=== PATIENT | female | born 1930 | race Caucasian/White ===

== ENCOUNTER → 2017-05-02 | Outpatient (CLI) | payer MEDICARE ==
[~2017-05-02] MED LIST: DILT180C56 PO; LORA-392 PO; ONDA4TAB7 PO
[2017-05-02 17:56] LABS: AUTOMATED NEUTROPHIL # 4.3 TH/MM3 (1.8-7.7); BASOPHIL # 0.1 TH/MM3 (0-0.2); BASOPHIL % 1.1 % (0.0-2.0); EOSINOPHIL # 0.1 TH/MM3 (0-0.4); EOSINOPHIL % 2.5 % (0.0-4.0); HEMATOCRIT 43.8 % (35.0-46.0); HEMO FLAGS DIFF FINAL; LYMPH % 9.9 % (9.0-44.0); LYMPHOCYTE # 0.6 TH/MM3 (1.0-4.8); MEAN CORPUSCULAR HEMOGLOBIN 30.1 PG (27.0-34.0); MEAN CORPUSCULAR HGB CONC 32.4 % (32.0-36.0); MONO % 12.9 % (0.0-8.0); NEUT % 73.6 % (16.0-70.0); PLATELET COUNT 157 TH/MM3 (150-450); RED BLOOD COUNT 4.71 MIL/MM3 (4.00-5.30); RED CELL DISTRIBUTION WIDTH 13.9 % (11.6-17.2); WHITE BLOOD COUNT 5.8 TH/MM3 (4.0-11.0)
[2017-05-02 18:14] LABS: ALT (GPT) 31 U/L (10-53); ANION GAP 8 MEQ/L (5-15); AST (GOT) 29 U/L (15-37); BICARBONATE 31.5 MEQ/L (21.0-32.0); BLOOD UREA NITROGEN 20 MG/DL (7-18); CHLORIDE 101 MEQ/L (98-107); GLOMERULAR FILTRATION RATE 65 ML/MIN (>89); POTASSIUM 4.1 MEQ/L (3.5-5.1); SODIUM (NA) 140 MEQ/L (136-145)
[2017-05-02 18:24] LABS: ALKALINE PHOSPHATASE 87 U/L (45-117); TOTAL BILIRUBIN ADULT 0.8 MG/DL (0.2-1.0)
== END ==
LOC: PLAB 15:43
PROVIDERS: ATTEND Family Medicine
DX: F41.1 Generalized anxiety disorder (principal); R53.83 Other fatigue; R53.1 Weakness; K59.00 Constipation, unspecified
CPT/HCPCS: 36415; 80053; 84443; 85025

== ENCOUNTER → 2017-10-05 | Outpatient (CLI) | payer MEDICARE ==
[2017-10-05 13:55] LABS: AUTOMATED NEUTROPHIL # 3.6 TH/MM3 (1.8-7.7); BASOPHIL # 0.1 TH/MM3 (0-0.2); BASOPHIL % 1.4 % (0.0-2.0); EOSINOPHIL # 0.1 TH/MM3 (0-0.4); EOSINOPHIL % 2.4 % (0.0-4.0); HEMATOCRIT 46.3 % (35.0-46.0); HEMO FLAGS DIFF FINAL; LYMPH % 11.9 % (9.0-44.0); LYMPHOCYTE # 0.6 TH/MM3 (1.0-4.8); MEAN CELL VOLUME 93.3 FL (80.0-100.0); MEAN CORPUSCULAR HEMOGLOBIN 30.6 PG (27.0-34.0); MEAN CORPUSCULAR HGB CONC 32.8 % (32.0-36.0); MONO % 11.3 % (0.0-8.0); PLATELET COUNT 162 TH/MM3 (150-450); RED BLOOD COUNT 4.97 MIL/MM3 (4.00-5.30); RED CELL DISTRIBUTION WIDTH 14.3 % (11.6-17.2); WHITE BLOOD COUNT 4.9 TH/MM3 (4.0-11.0)
== END ==
LOC: PLAB 10:48
PROVIDERS: ATTEND Family Medicine
DX: D72.821 Monocytosis (symptomatic) (principal)
CPT/HCPCS: 36415; 85025

== ENCOUNTER 2018-01-03 17:30 | Observation (INO) | payer MEDICARE ==
[~2018-01-03] VITALS: Ht 162.6 cm; Wt 41.5 kg
[2018-01-03] VITALS (7 sets, daily range): BP systolic 156–192; BP diastolic 84–99; PULSE 66–83; RESP 14–18; TEMP 97.5–98; O2SAT 95–98
[2018-01-03] MEDS ORDERED: SODIUM CHLORIDE 0.9% FLUSH 10 ML FLUSH IVF PRN (17:45)
--- NOTE | 2018-01-03 17:53 | PD ---
HPI Chief Complaint: Neuro Symptoms/ Deficits Time Seen by Provider: 17:42 Travel History International Travel<30 days: No Contact w/Intl Traveler<30days: No Traveled to known affect area: No History of Present Illness HPI 87-year-old female patient presents to the ER today brought in because she states that around 4 PM she started feeling very lightheaded, felt like she was going to pass out, but did not pass out. She states that the symptoms lasted for several hours but is now subsiding. She has some discomfort on her left cheek but otherwise denies any chest pains, shortness of breath, or any other symptoms. She denies any focal neurological symptoms. She states that she just felt lightheaded and disoriented. Modifying Factors: None Associated Signs & Symptoms: Lightheadedness, disorientation, near syncope Risk Factors: Elderly PFSH Past Medical History Arthritis: Yes (LE'S) Asthma: Yes Autoimmune Disease: No Anxiety: Yes Depression: Yes Heart Rhythm Problems: No Cancer: No Cardiovascular Problems: No High Cholesterol: Yes (WILL NOT TAKE CHOLESTEROL MEDS) Chemotherapy: No Chest Pain: No Congestive Heart Failure: No COPD: No Diabetes: No Diminished Hearing: Yes (R EAR HEARING AID; FREQUENT FLUID IN EARS) Endocrine: No Gastrointestinal Disorders: Yes (CONSTIPATION) GERD: Yes Genitourinary: Yes Hiatal Hernia: No Immune Disorder: No Musculoskeletal: Yes (TEMPORAL ARTERITIS) Neurologic: No Psychiatric: No Reproductive: No Respiratory: Yes (ASTHMA) Pneumonia: Yes Radiation Therapy: No Sickle Cell Disease: No Sleep Apnea: No Thyroid Disease: No Ulcer: No ?: Not Menopausal: Yes Past Surgical History Abdominal Surgery: No AICD: No Arteriovenous Shunt: No Cardiac Surgery: No Ear Surgery: Yes (TUBES IN LEFT EAR) Endocrine Surgery: Yes (SINUS SURGERY) Eye Surgery: Yes (BILATERAL CATARACTS 2002; MACULAR HOLE LEFT EYE 2002) Genitourinary Surgery: No Gynecologic Surgery: No Insulin Pump: No Joint Replacement: No Oral Surgery: No Pacemaker: No Thoracic Surgery: No Other Surgery: Yes (LEFT ARM/WRIST) Social History Alcohol Use: No Tobacco Use: No Substance Use: No Allergies-Medications (Allergen,Severity, Reaction): Coded Allergies: clarithromycin (Unverified Allergy, Mild, 01/03/18) clindamycin (Unverified Allergy, Mild, 01/03/18) ofloxacin (Unverified Allergy, Mild, 01/03/18) paroxetine (Unverified Allergy, Mild, 01/03/18) penicillin G (Unverified Allergy, Mild, 01/03/18) sulfamethoxazole (Unverified Allergy, Mild, 01/03/18) trimethoprim (Unverified Allergy, Mild, 01/03/18) venlafaxine (Unverified Allergy, Mild, 01/03/18) acetaminophen (Unverified Adverse Reaction, Intermediate, THROAT GETS RED. , 01/03/18) aspirin (Unverified Adverse Reaction, Intermediate, UPSET STOMACH, 01/03/18) ibuprofen (Unverified Adverse Reaction, Mild, NAUSEA, 01/03/18) Reported Meds & Prescriptions Reported Meds & Active Scripts Active No Active Prescriptions or Reported Medications Review of Systems Except as stated in HPI: all other systems reviewed are Neg Physical Exam Narrative GENERAL: [Well-developed thin elderly white female patient currently in mild distress. Awake and oriented 3. SKIN: Focused skin assessment warm/dry. HEAD: Atraumatic. Normocephalic. EYES: Pupils equal and round. No scleral icterus. No injection or drainage. ENT: No nasal bleeding or discharge. Mucous membranes pink and moist. NECK: Trachea midline. No JVD. CARDIOVASCULAR: Regular rate and rhythm. No murmur appreciated. RESPIRATORY: No accessory muscle use. Clear to auscultation. Breath sounds equal bilaterally. GASTROINTESTINAL: Abdomen soft, non-tender, nondistended. Hepatic and splenic margins not palpable. MUSCULOSKELETAL: No obvious deformities. No clubbing. No cyanosis. No edema. NEUROLOGICAL: Awake and alert. No obvious cranial nerve deficits. Motor grossly within normal limits. Normal speech. No pronator drift. PSYCHIATRIC: Appropriate mood and affect; insight and judgment normal. Data Data Last Documented VS Vital Signs Date Time Temp Pulse Resp B/P (MAP) Pulse Ox O2 Delivery O2 Flow Rate FiO2 01/03/18 18:45 83 14 169/99 (122) 98 Room Air 01/03/18 17:45 98.0 Orders Orders Electrocardiogram (01/03/18 17:42) Complete Blood Count With Diff (01/03/18 17:42) Comprehensive Metabolic Panel (01/03/18 17:42) Magnesium (Mg) (01/03/18 17:42) Ckmb (Isoenzyme) Profile (01/03/18 17:42) Troponin I (01/03/18 17:42) Act Partial Throm Time (Ptt) (01/03/18 17:42) Prothrombin Time / Inr (Pt) (01/03/18 17:42) Urinalysis - C+S If Indicated (01/03/18 17:42) Chest, Single Ap (01/03/18 17:42) Ct Brain W/O Iv Contrast(Rout) (01/03/18 17:42) Ecg Monitoring (01/03/18 17:42) Iv Access Insert/Monitor (01/03/18 17:42) Oximetry (01/03/18 17:42) Sodium Chloride 0.9% Flush (Ns Flush) (01/03/18 17:45) Blood Culture (01/03/18 17:42) Lactic Acid Sepsis Protocol (01/03/18 17:42) Admit Order (Ed Use Only) (01/03/18 19:44) Labs Laboratory Tests Test 01/03/18 17:50 01/03/18 18:30 01/03/18 19:10 White Blood Count 4.9 TH/MM3 Red Blood Count 4.64 MIL/MM3 Hemoglobin 14.1 GM/DL Hematocrit 42.6 % Mean Corpuscular Volume 91.7 FL Mean Corpuscular Hemoglobin 30.3 PG Mean Corpuscular Hemoglobin Concent 33.0 % Red Cell Distribution Width 13.3 % Platelet Count 163 TH/MM3 Mean Platelet Volume 8.7 FL Neutrophils (%) (Auto) 76.6 % Lymphocytes (%) (Auto) 10.6 % Monocytes (%) (Auto) 9.4 % Eosinophils (%) (Auto) 2.4 % Basophils (%) (Auto) 1.0 % Neutrophils # (Auto) 3.8 TH/MM3 Lymphocytes # (Auto) 0.5 TH/MM3 Monocytes # (Auto) 0.5 TH/MM3 Eosinophils # (Auto) 0.1 TH/MM3 Basophils # (Auto) 0.0 TH/MM3 CBC Comment DIFF FINAL Differential Comment Prothrombin Time 11.4 SEC Prothromb Time International Ratio 1.1 RATIO Activated Partial Thromboplast Time 25.9 SEC Blood Urea Nitrogen 22 MG/DL Creatinine 0.95 MG/DL Random Glucose 143 MG/DL Total Protein 7.3 GM/DL Albumin 3.6 GM/DL Calcium Level 8.6 MG/DL Magnesium Level 2.5 MG/DL Alkaline Phosphatase 97 U/L Aspartate Amino Transf (AST/SGOT) 33 U/L Alanine Aminotransferase (ALT/SGPT) 36 U/L Total Bilirubin 0.5 MG/DL Sodium Level 134 MEQ/L Potassium Level 4.0 MEQ/L Chloride Level 99 MEQ/L Carbon Dioxide Level 29.8 MEQ/L Anion Gap 5 MEQ/L Estimat Glomerular Filtration Rate 56 ML/MIN Total Creatine Kinase 99 U/L Troponin I LESS THAN 0.02 NG/ML Lactic Acid Level 1.2 mmol/L Urine Color YELLOW Urine Turbidity CLEAR Urine pH 6.0 Urine Specific [place] 1.014 Urine Protein NEG mg/dL Urine Glucose (UA) NEG mg/dL Urine Ketones NEG mg/dL Urine Occult Blood NEG Urine Nitrite NEG Urine Bilirubin NEG Urine Leukocyte Esterase TRACE Urine RBC 0-3 /hpf Urine WBC 0-2 /hpf Urine Squamous Epithelial Cells 0-5 /hpf Urine Mucus MOD /lpf Microscopic Urinalysis Comment CULT NOT INDICATED MDM Medical Decision Making Medical Screen Exam Complete: Yes Emergency Medical Condition: Yes Medical Record Reviewed: Yes Interpretation(s) EKG shows normal sinus rhythm at a rate of 78 bpm with occasional APC. Laboratory Tests Test 01/03/18 17:50 01/03/18 18:30 Neutrophils (%) (Auto) 76.6 % (16.0-70.0) Monocytes (%) (Auto) 9.4 % (0.0-8.0) Lymphocytes # (Auto) 0.5 TH/MM3 (1.0-4.8) Blood Urea Nitrogen 22 MG/DL (7-18) Random Glucose 143 MG/DL (74-106) Sodium Level 134 MEQ/L (136-145) Estimat Glomerular Filtration Rate 56 ML/MIN (>89) Troponin I LESS THAN 0.02 NG/ML Last [address] 01/03/18 0282 Signed Impressions: Service Date/Time: Wednesday, January 03, 2018 18:06 - CONCLUSION: Normal examination for a patient of this age. Chronic changes involving the sinuses. Tomy Somers MD Differential Diagnosis Lightheadedness, disorientation episode: Dehydration versus metabolic issues versus dysrhythmias versus CVA versus sepsis versus ICH Narrative Course Symptoms have subsided in the ER. CAT scan of the brain was negative for any signs of acute intracranial processes. EKG did not show acute dysrhythmia although she did have a PAC. She did not have any significant ST changes. vital signs are stable in the ER. She has no focal neurological findings. At this point, my plan would be to admit her for observation for further evaluation of episode. Case was discussed with PA for Dr. Siegel. Diagnosis Primary Impression: Near syncope Admitting Information Admitting Physician Requests: Admit Scripts No Active Prescriptions or Reported Meds Mariel Mullins MD Jan 03, 2018 17:53
--- NOTE | 2018-01-03 18:17 | RADRPT ---
EXAM DATE/TIME: 01/03/2018 18:06 [facility] COMPARISON: No previous studies available for comparison. INDICATIONS : Episode of confusion. RADIATION DOSE: 57.68 CTDIvol (mGy) MEDICAL HISTORY : Hypercholesterolemia. SURGICAL HISTORY : None. ENCOUNTER: Initial ACUITY: 1 day PAIN SCALE: 0/10 LOCATION: cranial TECHNIQUE: Multiple contiguous axial images were obtained of the head. Using automated exposure control and adj ustment of the mA and/or kV according to patient size, radiation dose was kept as low as reasonably a chievable to obtain optimal diagnostic quality images. DICOM format image data is available electro nically for review and comparison. FINDINGS: CEREBRUM: The ventricles are normal for age. No evidence of midline shift, mass lesion, hemorrhage or acute in farction. No extra-axial fluid collections are seen. POSTERIOR FOSSA: The cerebellum and brainstem are intact. The 4th ventricle is midline. The cerebellopontine angle i s unremarkable. EXTRACRANIAL: The visualized portion of the orbits is intact. There is evidence of nasal sinus surgery. There is a polyp in the left maxillary sinus. There is some chronic changes in the ethmoid sinuses. SKULL: The calvaria is intact. No evidence of skull fracture. CONCLUSION: Normal examination for a patient of this age. Chronic changes involving the sinuses. Tomy Somers MD on January 03, 2018 at 18:14 Board Certified Radiologist. This report was verified electronically.
[2018-01-03 18:21] LABS: AUTOMATED NEUTROPHIL # 3.8 TH/MM3 (1.8-7.7); EOSINOPHIL # 0.1 TH/MM3 (0-0.4); EOSINOPHIL % 2.4 % (0.0-4.0); HEMATOCRIT 42.6 % (35.0-46.0); HEMOGLOBIN 14.1 GM/DL (11.6-15.3); LYMPH % 10.6 % (9.0-44.0); LYMPHOCYTE # 0.5 TH/MM3 (1.0-4.8); MEAN CELL VOLUME 91.7 FL (80.0-100.0); MEAN CORPUSCULAR HEMOGLOBIN 30.3 PG (27.0-34.0); MEAN PLATELET VOLUME 8.7 FL (7.0-11.0); MONO % 9.4 % (0.0-8.0); MONOCYTE # 0.5 TH/MM3 (0-0.9); NEUT % 76.6 % (16.0-70.0); PLATELET COUNT 163 TH/MM3 (150-450); RED BLOOD COUNT 4.64 MIL/MM3 (4.00-5.30); RED CELL DISTRIBUTION WIDTH 13.3 % (11.6-17.2); WHITE BLOOD COUNT 4.9 TH/MM3 (4.0-11.0)
[2018-01-03 18:32] LABS: CHLORIDE 99 MEQ/L (98-107); SODIUM (NA) 134 MEQ/L (136-145)
[2018-01-03 18:35] LABS: CALCIUM 8.6 MG/DL (8.5-10.1)
[2018-01-03 18:36] LABS: ALBUMIN 3.6 GM/DL (3.4-5.0); BICARBONATE 29.8 MEQ/L (21.0-32.0); BLOOD UREA NITROGEN 22 MG/DL (7-18); GLUCOSE,RANDOM 143 MG/DL (74-106); MAGNESIUM 2.5 MG/DL (1.5-2.5)
[2018-01-03 18:37] LABS: INTERNATIONAL NORMALIZED RATIO 1.1 RATIO; PROTHROMBIN TIME - PATIENT 11.4 SEC (9.8-11.6)
[2018-01-03 18:39] LABS: ALT (GPT) 36 U/L (10-53); AST (GOT) 33 U/L (15-37); CREATININE 0.95 MG/DL (0.50-1.00); GLOMERULAR FILTRATION RATE 56 ML/MIN (>89)
--- NOTE | 2018-01-03 18:40 | RADRPT ---
EXAM DATE/TIME: 01/03/2018 18:16 [facility] COMPARISON: No previous studies available for comparison. INDICATIONS : Weakness and confusion. MEDICAL HISTORY : Hypercholesterolemia. SURGICAL HISTORY : None. ENCOUNTER: Initial ACUITY: 1 day PAIN SCORE: 0/10 LOCATION: Bilateral chest FINDINGS: A single view of the chest demonstrates the lungs to be symmetrically aerated without evidence of mas s, infiltrate or effusion. There is hyperaeration bilaterally. The cardiomediastinal contours are un remarkable. Osseous structures are intact. CONCLUSION: No acute disease. Tomy Somers MD on January 03, 2018 at 18:37 Board Certified Radiologist. This report was verified electronically.
[2018-01-03 18:41] LABS: TOTAL BILIRUBIN ADULT 0.5 MG/DL (0.2-1.0); TOTAL PROTEIN 7.3 GM/DL (6.4-8.2)
[2018-01-03 18:42] LABS: ALKALINE PHOSPHATASE 97 U/L (45-117)
[2018-01-03 18:44] LABS: TROPONIN I LESS THAN 0.02 NG/ML (0.02-0.05)
[2018-01-03 19:23] LABS: BILIRUBIN, URINE NEG (NEG); BLOOD, URINE NEG (NEG); GLUCOSE,URINE NEG (NEG); KETONE, URINE NEG (NEG); NITRITE,URINE NEG (NEG); URINE LEUKOCYTE ESTERASE TRACE (NEG)
[2018-01-03 19:30] LABS: URINE COLOR YELLOW (YELLW/STRAW)
[2018-01-03 19:31] LABS: MUCUS URINE MOD /lpf (OCC); RBC, URINE 0-3 /hpf (0-3); SQUAMOUS EPITHELIAL CELL URINE 0-5 /hpf (0-5); WBC, URINE 0-2 /hpf (0-5)
[2018-01-03] MEDS ORDERED: GLUCAGON 1 MG/ML VIAL OTHER PRN (19:45)
[2018-01-03] MEDS ORDERED: SODIUM CHLORIDE 0.9% FLUSH 10 ML FLUSH IV FLUSH PRN (19:45)
[2018-01-03] MEDS ORDERED: DEXTROSE 50% IN WATER 50 ML VIAL(D50) IV PUSH PRN (19:45)
[2018-01-03] MEDS ORDERED: RESP: ALBUTEROL 2.5 MG/IPRATROPIUM 0.5 MG NEB (PRN) NEB (20:00)
[2018-01-03] MEDS: INSULIN ASPART SUPPLEMENTAL SCALE SQ SCH (22:00)
[2018-01-03] MEDS ORDERED: NAPROXEN 250 MG TAB PO ONE (22:45)
[2018-01-03] MEDS: SODIUM CHLORIDE 0.9% FLUSH 10 ML FLUSH IV FLUSH SCH (23:12)
[2018-01-03] MEDS: HEPARIN SODIUM - SQ 10,000 UNITS/ML VIAL SQ SCH (23:12)
[2018-01-03 23:13] LABS: TROPONIN I LESS THAN 0.02 NG/ML (0.02-0.05)
[2018-01-04] VITALS (8 sets, daily range): BP systolic 108–136; BP diastolic 64–78; PULSE 64–99; RESP 16–18; TEMP 97.2–97.8; O2SAT 91–99
[2018-01-04] MEDS: HEPARIN SODIUM - SQ 10,000 UNITS/ML VIAL SQ SCH ×2 (05:00→13:55)
[2018-01-04 06:46] LABS: AUTOMATED NEUTROPHIL # 3.3 TH/MM3 (1.8-7.7); BASOPHIL # 0.1 TH/MM3 (0-0.2); BASOPHIL % 1.1 % (0.0-2.0); EOSINOPHIL # 0.1 TH/MM3 (0-0.4); EOSINOPHIL % 3.1 % (0.0-4.0); HEMATOCRIT 40.8 % (35.0-46.0); HEMOGLOBIN 13.7 GM/DL (11.6-15.3); LYMPHOCYTE # 0.6 TH/MM3 (1.0-4.8); MEAN CELL VOLUME 91.2 FL (80.0-100.0); MEAN CORPUSCULAR HEMOGLOBIN 30.7 PG (27.0-34.0); MEAN CORPUSCULAR HGB CONC 33.7 % (32.0-36.0); MEAN PLATELET VOLUME 8.6 FL (7.0-11.0); MONO % 10.8 % (0.0-8.0); MONOCYTE # 0.5 TH/MM3 (0-0.9); PLATELET COUNT 147 TH/MM3 (150-450); RED BLOOD COUNT 4.47 MIL/MM3 (4.00-5.30); RED CELL DISTRIBUTION WIDTH 13.3 % (11.6-17.2); WHITE BLOOD COUNT 4.6 TH/MM3 (4.0-11.0)
[2018-01-04 07:10] LABS: CHLORIDE 99 MEQ/L (98-107); SODIUM (NA) 134 MEQ/L (136-145)
[2018-01-04 07:13] LABS: BICARBONATE 28.7 MEQ/L (21.0-32.0); BLOOD UREA NITROGEN 15 MG/DL (7-18)
[2018-01-04 07:15] LABS: CALCIUM 8.2 MG/DL (8.5-10.1)
[2018-01-04 07:16] LABS: GLUCOSE,RANDOM 64 MG/DL (74-106)
[2018-01-04 07:20] LABS: CREATININE 0.64 MG/DL (0.50-1.00); GLOMERULAR FILTRATION RATE 88 ML/MIN (>89)
[2018-01-04 07:21] LABS: TROPONIN I LESS THAN 0.02 NG/ML (0.02-0.05)
[2018-01-04] MEDS: INSULIN ASPART SUPPLEMENTAL SCALE SQ SCH ×3 (08:00→17:00)
[2018-01-04] MEDS ORDERED: ALPRAZolam 0.25 MG TAB PO ONE (08:30)
[2018-01-04] MEDS: SODIUM CHLORIDE 0.9% FLUSH 10 ML FLUSH IV FLUSH SCH (09:00)
[2018-01-04 09:56] LABS: CHOLESTEROL/ HDL RATIO 2.1 RATIO; HDL CHOLESTEROL 65.1 MG/DL (40.0-60.0)
--- NOTE | 2018-01-04 10:03 | RADRPT ---
EXAM DATE/TIME: 01/04/2018 09:05 [facility] COMPARISON: No previous studies available for comparison. INDICATIONS : Syncope. MEDICAL HISTORY : Hypercholesterolemia. Gastroesophageal reflux disease. Asthma. Dyspnea. Arthritis. SURGICAL HISTORY : Sinus surgery. Left arm surgery. ENCOUNTER: Initial ACUITY: 1 day PAIN SCORE: 0/10 LOCATION: Bilateral neck PEAK SYSTOLIC VELOCITIES (cm/sec): ICA/CCA RATIO: Right: 1.0 Left: 1.4 ICA: Right: 119 Left: 81 CCA: Right: 113 Left: 60 ECA: Right: 86 Left: 79 VERTEBRAL: Right: 61 antegrade Left: 63 antegrade Elevated flow velocities and ICA/CCA ratios have been found to correlate with increased degrees of vessel stenosis, calculated as percentage of diameter relative to a normal segment of distal ICA/CCA FINDINGS: RIGHT CAROTID: Eccentric calcific plaquing. No significant stenosis is visualized. The waveforms are within normal limits. LEFT CAROTID: Eccentric calcific plaquing. No significant stenosis is visualized. The waveforms are within normal limits. VERTEBRAL ARTERIES: Antegrade flow is seen in both vertebral arteries. MISCELLANEOUS: None. CONCLUSION: No evidence of flow-limiting carotid stenosis. Candido Verdugo MD on January 04, 2018 at 10:00 Board Certified Radiologist. This report was verified electronically.
--- NOTE | 2018-01-04 10:07 | HHI.FF ---
Face to Face Verification Diagnosis: (1) Gait instability (2) Near syncope Physical Therapy Order: Evaluate and Treat, Improve ambulation Occupational Therapy Order: Evaluate and Treat, Improve ADL, Gross motor coordination Home Health Nursing Order: Medical education Signs/symptoms of disease process I have seen patient Candi Beltran on 01/04/18. My clinical findings support the need for the requested home health care services because: Ltd mobility - disease progression I certify that my clinical findings support that this patient is homebound because: Impaired cognitive ability/safety Unsteady gait/balance Gladys Zamudio MD Jan 04, 2018 10:07
[2018-01-04] MEDS ORDERED: LORazepam 2 MG/ML VIAL IV PUSH ONE (10:30)
--- NOTE | 2018-01-04 10:52 | MB ---
cc: TIKA MAHER DATE OF CONSULTATION 01/04/2018 REASON FOR CONSULTATION This is an 87-year-old woman with a history really she has been very healthy, but for many years, she has had dizziness if she turns her head to the left in bed. For the last several days, she had some lightheadedness, felt generally weak all over when she stood up not when she was lying. Does not remember if it occurred sitting. No asymmetrical weakness or numbness. She is very hard of hearing. REVIEW OF SYSTEMS She denies any hypertension, diabetes, hypercholesterolemia, [place], CABG, stent angioplasty, A fib, Coumadin. She does not take an aspirin a day. No history of renal, hepatic or pulmonary disease, thyroid disease, lupus, ulcer, cancer, seizure, or stroke. SOCIAL HISTORY Not a smoker or a drinker, lives alone. FAMILY HISTORY Positive for cancer, negative for seizure or stroke. PAST MEDICAL HISTORY 1. Tube in the left ear. She does not have a local ear, nose and throat doctor at this time. 2. She had been seen by neurology here before. 3. By the chart, temporal arteritis. She had temperature temporal arteritis about 8 years ago, but she has had no recent tenderness in the mandaeism which she did have back 8 years ago. She has had some sinus pain lower eyes with no headaches recently and no mandaeism tenderness recently. 4. Asthma MEDICATIONS AT HOME She does not take an aspirin. ALLERGIES SHE IS ALLERGIC TO CLARITHROMYCIN, CLINDAMYCIN, OFLOXACIN, PARXOETINE, PENICILLIN, SULFA, BACTRIM, VENLAFAXINE, TYLENOL, ASPIRIN, IBUPROFEN. PHYSICAL EXAM VITAL SIGNS: Afebrile, 72-99,l 18, 116/71. NECK: There were no carotid or vertebral bruits. HEART: Regular rhythm. I did not detect a murmur. EAR: The right year has a lot of cerumen in it. The left ear I can see a tube not so much cerumen. She is very hard of hearing and uses a device to hear. NEUROLOGIC: Pupils are equal, visual stiles are full. Extraocular movements intact without nystagmus. Hallpike maneuvers has had a little bit of dizziness with the head to the left and I did the Hallpike maneuver times one starting on the left. Face is symmetrical with normal sensation. Tongue was midline. Temples were nontender bilaterally. There is no nodularity to the temporal arteries. There is no drift. She had normal strength in her upper and lower extremities bilaterally. DTRs trace throughout. Toes downgoing bilaterally. Pinprick is intact throughout. She is not ataxic on [id number] or [id number]. Speech is fluent. She is not aphasic. LABORATORY DATA CBC is normal. She had some high relative hypoxia on ABG back in 2013. Basic metabolic profile showed a sodium of 134, otherwise normal. GFR is normal. Calcium, lactic acid, bilirubin and LFTs, CPK, troponin, albumin all normal. LDL cholesterol is normal. UA is negative. Coags normal. In 2013, she evidently had some fluid out of her pleura. Chest x-ray Negative. She had a carotid ultrasound results are pending. She had a CT scan of her brain that was read as normal. Review of those films, they do appear to be normal. IMPRESSION I think her main complaint was lightheadedness. We will check some standing blood pressures on her. I do not see much wrong with her, although she has a history with sounds like benign positional vertigo and that could be related to some dizziness, but otherwise I think she could use of the wax removed from her right ear. It might be helpful with her hearing. I will see what the MRI of the brain shows, but I think probable it will be negative and will have PT ambulate her and we could see her back in the office for a benign positional vertigo in the future. We will check a sed rate with a history of temporal arteritis, although I note her sed rates were never extremely high up around 47 back in 2004. The last sed rate in 2005 was 2. Check a B12 level on her and her thyroid too and get some standing blood pressures. MD [place] Alexander/MICHAEL /9:58 AM /10:23 AM
[2018-01-04 12:49] LABS: C-REACTIVE PROTEIN LESS THAN 0.29 MG/DL (0.00-0.30)
--- NOTE | 2018-01-04 12:52 | RADRPT ---
EXAM DATE/TIME: 01/04/2018 11:16 [facility] COMPARISON: No previous studies available for comparison. INDICATIONS : TIA. MEDICAL HISTORY : Hypercholesterolemia, GERD SURGICAL HISTORY : Sinus Surgery ENCOUNTER: Subsequent ACUITY: 2 day PAIN SCORE: 0/10 LOCATION: Brain TECHNIQUE: Multiplanar, multisequence MRI of the brain was performed without contrast. FINDINGS: Moderate periventricular white matter changes are evident. There is no focal restricted diffusion. Ventricular size is appropriate. There are no extra-axial fluid collection appreciated. There is no parenchymal hemorrhage. The posterior fossa the vertebral arteries are prominent with mild dolichoectasia of the vertebral ar teries. Minimal white matter ischemic changes are seen in the brainstem CONCLUSION: Negative for acute ischemic event Dolichoectasia vertebral arteries Moderate periventricular white matter changes. oJse Najera MD FACR on January 04, 2018 at 12:43 Board Certified Radiologist. This report was verified electronically.
--- NOTE | 2018-01-04 12:55 | EKG ---
Date Performed: 01/03/2018 Time Performed: 17:57:56 PTAGE: 87 years EKG: ATRIAL FIBRILLATION MARKED LEFT AXIS DEVIATION LOW QRS VOLTAGE IN EXTREMITY LEADS INCOMPLET E RIGHT BUNDLE BRANCH BLOCK ANTEROSEPTAL MYOCARDIAL INFARCTION ABNORMAL ECG PREVIOUS TRACING : 01/03/2018 17.54 DOCTOR: Natanael Kraus Interpretating Date/Time 01/04/2018 12:49:08
--- NOTE | 2018-01-04 13:15 | HHI.HP ---
[facility]ician Adry Kelly MD Admission Diagnosis TIA/nearsyncope Diagnoses: Chief Complaint: Lightheaded Travel History International Travel<30 Days: No Contact w/Intl Traveler <30 Da: No Traveled to Known Affected Are: No History of Present Illness This patient is seen in follow up for dizziness for one day. She has worsening symptoms when she turns her head to the left. She has had no fevers or chills. She not denies any trouble speaking or weakness in the extremities. Patient has no new medications. She does have chronic ear issues including a tube in the left ear. On my exam as well as neurologist patient does have cerumen doses possible impaction on the right ear. She uses an external hearing device. She is recommended for observation due to acute neurological complaints and for dizziness.MRI is negative for acute changes Past Family Social History Past Medical History Heart of hearing Left ear tube Past Surgical History none Reported Medications None Allergies: Coded Allergies: clarithromycin (Unverified Allergy, Mild, 01/03/18) clindamycin (Unverified Allergy, Mild, 01/03/18) ofloxacin (Unverified Allergy, Mild, 01/03/18) paroxetine (Unverified Allergy, Mild, 01/03/18) penicillin G (Unverified Allergy, Mild, 01/03/18) sulfamethoxazole (Unverified Allergy, Mild, 01/03/18) trimethoprim (Unverified Allergy, Mild, 01/03/18) venlafaxine (Unverified Allergy, Mild, 01/03/18) acetaminophen (Unverified Adverse Reaction, Intermediate, THROAT GETS RED. , 01/03/18) aspirin (Unverified Adverse Reaction, Intermediate, UPSET STOMACH, 01/03/18) ibuprofen (Unverified Adverse Reaction, Mild, NAUSEA, 01/03/18) Family History Unknown Social History lives with Physical Exam Vital Signs Vital Signs Date Time Temp Pulse Resp B/P (MAP) Pulse Ox O2 Delivery O2 Flow Rate FiO2 01/04/18 08:00 97.7 99 18 116/71 (86) 96 01/04/18 07:01 78 01/04/18 04:00 97.4 72 18 136/72 (93) 94 01/04/18 00:00 97.8 64 18 128/64 (85) 91 01/03/18 21:00 72 01/03/18 20:50 97.5 66 18 166/96 (119) 95 01/03/18 20:35 74 18 156/87 (110) 96 01/03/18 19:49 20 01/03/18 19:25 71 18 169/89 (115) 97 01/03/18 18:45 83 14 169/99 (122) 98 Room Air 01/03/18 17:50 98 Room Air 01/03/18 17:45 98.0 83 18 192/84 (120) 98 Physical Exam GENERAL: This is a frail elderly female, in no apparent distress. Cachectic SKIN: No rashes, ecchymoses or lesions. Cool and dry. HEAD: Atraumatic. Normocephalic. No temporal or scalp tenderness. EYES: Pupils equal round and reactive. Extraocular motions intact. No scleral icterus. No injection or drainage. ENT: right ear ceruminosis, Nose without bleeding, purulent drainage or septal hematoma. Throat without erythema, tonsillar hypertrophy or exudate. Uvula midline. Airway patent. NECK: Trachea midline. No JVD or lymphadenopathy. Supple, nontender, no meningeal signs. CARDIOVASCULAR: Regular rate and rhythm without murmurs, gallops, or rubs. RESPIRATORY: Clear to auscultation. Breath sounds equal bilaterally. No wheezes , rales, or rhonchi. GASTROINTESTINAL: Abdomen soft, non-tender, nondistended. No hepato-splenomegaly , or palpable masses. No guarding. MUSCULOSKELETAL: Extremities without clubbing, cyanosis, or edema. No joint tenderness, effusion, or edema noted. No calf tenderness. Negative Homans sign bilaterally. NEUROLOGICAL: Awake and alert. profoundly hard of hearing. Motor and sensory grossly within normal limits. Five out of 5 muscle strength in all muscle groups. Normal speech. Laboratory Laboratory Tests Test 01/03/18 17:50 01/03/18 18:30 01/03/18 19:10 01/03/18 22:40 White Blood Count 4.9 Red Blood Count 4.64 Hemoglobin 14.1 Hematocrit 42.6 Mean Corpuscular Volume 91.7 Mean Corpuscular Hemoglobin 30.3 Mean Corpuscular Hemoglobin Concent 33.0 Red Cell Distribution Width 13.3 Platelet Count 163 Mean Platelet Volume 8.7 Neutrophils (%) (Auto) 76.6 Lymphocytes (%) (Auto) 10.6 Monocytes (%) (Auto) 9.4 Eosinophils (%) (Auto) 2.4 Basophils (%) (Auto) 1.0 Neutrophils # (Auto) 3.8 Lymphocytes # (Auto) 0.5 Monocytes # (Auto) 0.5 Eosinophils # (Auto) 0.1 Basophils # (Auto) 0.0 CBC Comment DIFF FINAL Differential Comment Prothrombin Time 11.4 Prothromb Time International Ratio 1.1 Activated Partial Thromboplast Time 25.9 Blood Urea Nitrogen 22 Creatinine 0.95 Random Glucose 143 Total Protein 7.3 Albumin 3.6 Calcium Level 8.6 Magnesium Level 2.5 Alkaline Phosphatase 97 Aspartate Amino Transf (AST/SGOT) 33 Alanine Aminotransferase (ALT/SGPT) 36 Total Bilirubin 0.5 Sodium Level 134 Potassium Level 4.0 Chloride Level 99 Carbon Dioxide Level 29.8 Anion Gap 5 Estimat Glomerular Filtration Rate 56 Total Creatine Kinase 99 81 Troponin I LESS THAN 0.02 LESS THAN 0.02 Lactic Acid Level 1.2 Urine Color YELLOW Urine Turbidity CLEAR Urine pH 6.0 Urine Specific [place] 1.014 Urine Protein NEG Urine Glucose (UA) NEG Urine Ketones NEG Urine Occult Blood NEG Urine Nitrite NEG Urine Bilirubin NEG Urine Leukocyte Esterase TRACE Urine RBC 0-3 Urine WBC 0-2 Urine Squamous Epithelial Cells 0-5 Urine Mucus MOD Microscopic Urinalysis Comment CULT NOT INDICATED Test 01/04/18 04:55 White Blood Count 4.6 Red Blood Count 4.47 Hemoglobin 13.7 Hematocrit 40.8 Mean Corpuscular Volume 91.2 Mean Corpuscular Hemoglobin 30.7 Mean Corpuscular Hemoglobin Concent 33.7 Red Cell Distribution Width 13.3 Platelet Count 147 Mean Platelet Volume 8.6 Neutrophils (%) (Auto) 72.0 Lymphocytes (%) (Auto) 13.0 Monocytes (%) (Auto) 10.8 Eosinophils (%) (Auto) 3.1 Basophils (%) (Auto) 1.1 Neutrophils # (Auto) 3.3 Lymphocytes # (Auto) 0.6 Monocytes # (Auto) 0.5 Eosinophils # (Auto) 0.1 Basophils # (Auto) 0.1 CBC Comment DIFF FINAL Differential Comment Erythrocyte Sedimentation Rate 9 Blood Urea Nitrogen 15 Creatinine 0.64 Random Glucose 64 Calcium Level 8.2 Sodium Level 134 Potassium Level 3.9 Chloride Level 99 Carbon Dioxide Level 28.7 Anion Gap 6 Estimat Glomerular Filtration Rate 88 Total Creatine Kinase 102 Troponin I LESS THAN 0.02 C-Reactive Protein LESS THAN 0.29 Triglycerides Level 51 Cholesterol Level 137 LDL Cholesterol 62 HDL Cholesterol 65.1 Cholesterol/HDL Ratio 2.10 Thyroid Stimulating Hormone 3rd Gen 3.110 Date/Time Source Procedure Growth Status 01/03/18 18:30 Blood Peripheral Aerobic Blood Culture - Preliminary NO GROWTH IN 1 DAY Resulted 01/03/18 18:30 Blood Peripheral Anaerobic Blood Culture - Preliminary NO GROWTH IN 1 DAY Resulted Result Diagram: 01/04/185 01/04/18 0455 Imaging Last Impressions Carotid Artery Ultrasound 01/04/18 0000 Signed Impressions: Service Date/Time: Thursday, January 04, 2018 09:05 - CONCLUSION: No evidence of flow-limiting carotid stenosis. Candido Verdugo MD Head CT 01/03/181741 Signed Impressions: Service Date/Time: Wednesday, January 03, 2018 18:06 - CONCLUSION: Normal examination for a patient of this age. Chronic changes involving the sinuses. Tomy Somers MD Chest X-Ray [id number]/03/181741 Signed Impressions: Service Date/Time: Wednesday, January 03, 2018 18:16 - CONCLUSION: No acute disease. Tomy Somers MD Capana cristinai VTE Risk Assessment Caprini VTE Risk Assessment: Mod/High Risk (score >= 2) Caprini Risk Assessment Model Point Value = 1 Point Value = 2 Point Value = 3 Point Value = 5 Age 41-60 Minor surgery BMI > 25 kg/m2 Swollen legs Varicose veins or History of unexplained or recurrent spontaneous Oral contraceptives or hormone replacement Sepsis (< 1 month) Serious lung disease, including pneumonia (< 1 month) Abnormal pulmonary function Acute myocardial infarction Congestive heart failure (< 1 month) History of inflammatory bowel disease Medical patient at bed rest Age 61-74 Arthroscopic surgery Major open surgery (> 45 min) Laparoscopic surgery (> 45 min) Malignancy Confined to bed (> 72 hours) Immobilizing plaster cast Central venous access Age >= 75 History of VTE Family history of VTE Factor V Leiden Prothrombin [id number] Lupus anticoagulant Anticardiolipin antibodies Elevated serum homocysteine Heparin-induced thrombocytopenia Other congenital or acquired thrombophilia Stroke (< 1 month) Elective arthroplasty Hip, pelvis, or leg fracture Acute spinal cord injury (< 1 month) Prophylaxis Regimen Total Risk Factor Score Risk Level Prophylaxis Regimen 0-1 Low Early ambulation 2 Moderate Order ONE of the following: *Sequential Compression Device (SCD) *Heparin 5000 units SQ BID 3-4 Higher Order ONE of the following medications: *Heparin 5000 units SQ TID *Enoxaparin/Lovenox 40 mg SQ daily (WT < 150 kg, CrCl > 30 mL/min) *Enoxaparin/Lovenox 30 mg SQ daily (WT < 150 kg, CrCl > 10-29 mL/min) *Enoxaparin/Lovenox 30 mg SQ BID (WT < 150 kg, CrCl > 30 mL/min) AND/OR *Sequential Compression Device (SCD) 5 or more Highest Order ONE of the following medications: *Heparin 5000 units SQ TID (Preferred with Epidurals) *Enoxaparin/Lovenox 40 mg SQ daily (WT < 150 kg, CrCl > 30 mL/min) *Enoxaparin/Lovenox 30 mg SQ daily (WT < 150 kg, CrCl > 10-29 mL/min) *Enoxaparin/Lovenox 30 mg SQ BID (WT < 150 kg, CrCl > 30 mL/min) AND *Sequential Compression Device (SCD) Assessment and Plan Problem List: (1) Gait instability ICD Code: R26.81 - Gait instability Status: Acute Plan: May be due to vertical with her known in her ear issues. Continue with wax removal of the ear. Follow-up MRI and orthostatic blood pressures (2) Hearing deficit ICD Code: H91.90 - Hearing deficit Status: Acute Plan: debrox right ear Discussed Condition With Likely discharge home with [facility] Gladys Zamudio MD Jan 04, 2018 13:15
[2018-01-04] MEDS ORDERED: CARB6.5S5 EACH EAR (13:33)
--- NOTE | 2018-01-04 13:46 | RADRPT ---
EXAM DATE/TIME: 01/04/2018 11:16 [place] COMPARISON: MRI BRAIN W/O CONTRAST, January 04, 2018, 11:16. INDICATIONS : TIA. MEDICAL HISTORY : Hypercholesterolemia, GERD SURGICAL HISTORY : Sinus surgery ENCOUNTER: Subsequent ACUITY: 2 day PAIN SCORE: 0/10 LOCATION: Brain Please note a normal MRA of the brain does not entirely exclude the possibility of a small aneurysm, TECHNIQUE: 3D time of flight MRA was performed. Source images, multiplanar STS MIP, and 3D volume MIP reconstru ctions were reviewed. FINDINGS: The visualized carotids, vertebrals and basilar artery are unremarkable. The proximal MCAs are patent . The more peripheral vessels are not well seen which may be for technical reasons in this patient. CONCLUSION: Technically limited equivocal examination Candido Verdugo MD on January 04, 2018 at 13:41 Board Certified Radiologist. This report was verified electronically.
[2018-01-04 14:06] LABS: TROPONIN I LESS THAN 0.02 NG/ML (0.02-0.05)
[2018-01-04 16:25] LABS: HEMOGLOBIN A1C 5.8 % (4.3-6.0)
--- NOTE | 2018-01-04 19:58 | ECHRPT ---
Indication: NEAR SYNCOPE CONCLUSIONS Technically difficult study In limited views, the left ventricular systolic function is normal with an estimated ejection fracti on in the range of 55-60%. Doppler parameters are consistent with impaired left ventricular relaxtion (grade 1 diastolic dysfun ction). There is mild tricuspid valve regurgitation. BP: 136 / 72 HR: 72 Rhythm: Sinus MEASUREMENTS (Male / Female) Normal Values Technical Quality:Technically difficult study 2D ECHO LV Diastolic Diameter PLAX 2.9 cm 4.2 - 5.9 / 3.9 - 5.3 cm LV Systolic Diameter PLAX 2.0 cm IVS Diastolic Thickness 0.8 cm 0.6 - 1.0 / 0.6 - 0.9 cm LVPW Diastolic Thickness 0.8 cm 0.6 - 1.0 / 0.6 - 0.9 cm LV Relative Wall Thickness 0.5 RV Internal Dim ED PLAX 1.6 cm LVOT Diameter 1.9 cm Aortic Root Diameter 3.0 cm LA Systolic Diameter LX 1.8 cm 3.0 - 4.0 / 2.7 - 3.8 cm M-MODE AV Cusp Separation MM 1.6 cm DOPPLER AV Peak Velocity 77.2 cm/s AV Peak Gradient 2.4 mmHg AV Mean Gradient 2.0 mmHg AV Velocity Time Integral 18.8 cm LVOT Peak Velocity 42.1 cm/s LVOT Peak Gradient 0.7 mmHg LVOT Velocity Time Integral 8.5 cm LVOT Cardiac Index 1291.3 cm/minm AV Area Cont Eq vti 1.3 cm AV Area Cont Eq pk 1.5 cm Mitral E Point Velocity 58.7 cm/s Mitral A Point Velocity 103.0 cm/s Mitral E to A Ratio 0.6 LV E' Lateral Velocity 6.7 cm/s Mitral E to LV E' Lateral Ratio 8.7 LV E' Septal Velocity 5.0 cm/s Mitral E to LV E' Septal Ratio 11.8 TR Peak Velocity 212.0 cm/s TR Peak Gradient 18.0 mmHg Right Atrial Pressure 10.0 mmHg Pulmonary Artery Systolic Pressu 28.0 mmHg Right Ventricular Systolic Press 28.0 mmHg PV Peak Velocity 50.4 cm/s PV Peak Gradient 1.0 mmHg FINDINGS LEFT VENTRICLE Normal left ventricular size. Wall thickness is normal. In limited views, the left ventricular systolic function is normal with an estimated ejection fracti on in the range of 55-60%. Doppler parameters are consistent with impaired left ventricular relaxtion (grade 1 diastolic dysfun ction). RIGHT VENTRICLE Grossly normal LEFT ATRIUM The left atrial size is mildly dilated. RIGHT ATRIUM The right atrial size is normal. ATRIAL SEPTUM No atrial level shunt is demonstrated by color flow Doppler interrogation. AORTA The aortic root and proximal ascending aorta are not well visualized. MITRAL VALVE Grossly normal mitral valve. No mitral valve stenosis or regurgitation. AORTIC VALVE Trileaflet aortic valve. No aortic valve stenosis or regurgitation. TRICUSPID VALVE There is mild tricuspid valve regurgitation. The estimated pulmonary arterial pressure is 28 mmHg. PULMONARY VALVE No pulmonary valve regurgitation or stenosis. VESSELS The inferior vena cava is normal in size. PERICARDIUM No pericardial effusion. Dwayne Reyna DO (Electronically Signed) Final Date:04 January 2018 19:57
[2018-01-04] MEDS ORDERED: CARBAMIDE PEROXIDE 6.5% OTIC SOLN 15 ML BTL EACH EAR SCH (21:00)
== END 2018-01-04 20:20 | disposition home or self-care (01) ==
LOC: PHED 17:30 → PHEDA 19:45 → PH3A 20:50
PROVIDERS: ADMIT Hospitalist; ATTEND Hospitalist
DX: R55 Syncope and collapse (principal); R26.9 Unspecified abnormalities of gait and mobility; H91.90 Unspecified hearing loss, unspecified ear; J45.909 Unspecified asthma, uncomplicated; E78.00 Pure hypercholesterolemia, unspecified; K59.00 Constipation, unspecified; M31.6 Other giant cell arteritis; K21.9 Gastro-esophageal reflux disease without esophagitis
CPT/HCPCS: 70450; 70544; 70551; 71045; 80048; 80053; 80061; 81001; 82550; 82607; 82948; 83036; 83605; 83735; 84425; 84443; 84484; 85025; 85610; 85652; 85730; 86140; 87040; 93005; 93306; 93880; 96372; 97162; 99285; G0378; G8987; G8988; J1644; J2060

== ENCOUNTER 2018-11-08 16:01 | Inpatient (IN) ==
--- NOTE | 2018-11-08 16:38 | ED ---
HPI General Chief Complaint: Fall Stated Complaint: fall Time Seen by Provider: 11/08/18 16:15 History of Present Illness HPI Narrative: This patient tripped while carrying groceries in and fell and hit the left side of her forehead on the ground. She has a large hematoma there. She is denying significant head or neck pain now. She did not lose consciousness. She denies blood thinners. She is got a bit of muscular soreness in the groin on the left side. She was able to get up on her own and finish carrying the groceries and after the fall. Symptom severity is mild. Duration 1 hour. No alleviating factors. No exacerbating factors. Related Data Home Medications Medication Instructions Recorded Confirmed No Known Home Medications 11/08/18 11/08/18 Allergies Allergy/AdvReac Type Severity Reaction Status Date / Time clarithromycin Allergy Mild Nausea Verified 11/08/18 18:29 clindamycin Allergy Mild Nausea Verified 11/08/18 18:29 ofloxacin Allergy Mild Nausea Verified 11/08/18 18:29 paroxetine Allergy Mild Nausea Verified 11/08/18 18:29 penicillin G Allergy Mild Nausea Verified 11/08/18 18:29 sulfamethoxazole Allergy Mild Nausea Verified 11/08/18 18:29 trimethoprim Allergy Mild Nausea Verified 11/08/18 18:29 venlafaxine Allergy Mild Nausea Verified 11/08/18 18:29 acetaminophen AdvReac Intermediate THROAT Verified 11/08/18 18:29 GETS RED. aspirin AdvReac Intermediate UPSET Verified 11/08/18 18:29 STOMACH ibuprofen AdvReac Mild NAUSEA Verified 11/08/18 18:29 Review of Systems ROS: all other systems reviewed are negative PMFSH Medical History Medical History Patient denies medical problems (Acute) Surgical History Surgical History No history of previous surgery (Acute) Social History Social History Substance History: No History of Abuse Second Hand Smoke Exposure: No Smoking Status: Never smoker How Often Do You Have a Drink Containing Alcohol: Never Recent Travel in [facility] within the Last 8 Weeks: No Recent Out of Country Travel within the Last 8 Weeks: No Exam Narrative Exam Narrative: GENERAL: Well-nourished, well-developed patient in no apparent distress. SKIN: Focused skin assessment reveals no rash and nodules. Skin is Warm and dry. HEAD: Large left brow hematoma. No bony tenderness. Tiny abrasion a Steri- Strip will be applied to. Normocephalic. EYES: Pupils equal and round. No scleral icterus. No injection or drainage. ENT: No nasal bleeding or discharge. Mucous membranes pink and moist. NECK: Trachea midline. No JVD. No midline tenderness CARDIOVASCULAR: Regular rate and rhythm. No murmur appreciated. RESPIRATORY: No accessory muscle use. Clear to auscultation. Breath sounds equal bilaterally. GASTROINTESTINAL: Abdomen soft, non-tender, nondistended. Hepatic and splenic margins not palpable. MUSCULOSKELETAL: No obvious deformities. No clubbing. No cyanosis. No edema. Good range of motion of hips NEUROLOGICAL: Awake and alert. No obvious cranial nerve deficits. Motor grossly within normal limits. Normal speech. PSYCHIATRIC: Appropriate mood and affect; insight and judgment normal. Course Initial Documented Vital Signs Temperature 97.9 F 11/08/18 16:16 Respiratory Rate 16 11/08/18 16:16 Last Documented Vital Signs Temperature 97.9 F 11/08/18 16:16 Pulse Rate 94 H 11/08/18 18:33 Respiratory Rate 16 11/08/18 18:33 Blood Pressure 112/89 11/08/18 18:33 Pulse Oximetry 98 11/08/18 18:33 Critical Care Time Critical Care Time: Yes Total Critical Care Time: 34 Attestation: Aggregate critical care time was 34 minutes. Time to perform other separately billable procedures was not included in the critical care time. My time did not include minutes spent treating any other patients simultaneously or on activities that did not directly contribute to the patient's treatment. The services I provided to this patient were to treat and/or prevent clinically significant deterioration that could result in: Brain stem herniation, permanent neurologic deficit I provided critical care services requiring my management, as noted below: Chart data review, documentation time, medication orders and management, vital sign assessments/reviewing monitor data, ordering and reviewing lab tests, ordering and interpreting/reviewing x-rays and diagnostic studies, care of the patient and discussion of the patient with the admitting physicians. Medical Decision Making MDM Narrative Medical decision making narrative: 88-year-old female who had a mechanical fall and struck her head. I have ordered a pelvis x-ray and a brain CT. She is neurologically at baseline, very hard of hearing. Brain CT reveals left-sided hemorrhagic contusion of the frontal lobe. There is 7 mm without any midline shift. Case reviewed with neurosurgeon Dr. Moreno. He recommends transfer to the main hospital intensive care and he will be a remediation bioanalytics consultant. Lab studies are normal except for minor thrombocytopenia She takes no anticoagulants. X-ray of the pelvis shows a nondisplaced pubic ramus fracture on the left. I discussed with trauma surgeon Dr. Arevalo who will admit the patient to his service with consultation to neurosurgery. Medical Screen Exam Complete: Yes Emergency Medical Condition: Yes Lab Data Lab results reviewed: Yes I reviewed the patient's lab results. Lab results narrative: Mild thrombocytopenia and mild hyponatremia Result diagrams: 11/08/18 18:24 11/08/18 18:24 Lab Results 11/08/18 11/08/18 11/08/18 Range/Units 18:24 18:24 18:24 CBC w Diff Slide review pending WBC 9.8 (4.0-11.0) th/mm3 RBC 4.61 (4.00-5.30) mil/mm3 Hgb 14.1 (11.6-15.3) gm/dL Hct 43.3 (35.0-46.0) % MCV 94.0 (80.0-100.0) fL MCH 30.5 (27.0-34.0) pg MCHC 32.4 (32.0-36.0) % RDW 14.7 (11.6-17.2) % Plt Count 135 L (150-450) th/mm3 MPV 8.4 (7.0-11.0) fL Neut % (Auto) 89.3 H (16.0-70.0) % Lymph % (Auto) 3.7 L (9.0-44.0) % [place] % (Auto) 4.6 (0.0-8.0) % Eos % (Auto) 0.5 (0.0-4.0) % Baso % (Auto) 1.9 (0.0-2.0) % Neut # (Auto) 8.8 H (1.8-7.7) th/mm3 Lymph # (Auto) 0.4 L (1.0-4.8) th/mm3 [place] # (Auto) 0.4 (0.0-0.9) th/mm3 Eos # (Auto) 0.0 (0.0-0.4) th/mm3 Baso # (Auto) 0.2 (0.0-0.2) th/mm3 Differential Comment . PT 11.9 H (9.8-11.6) sec INR 1.2 Ratio APTT 28.2 (23.4-31.7) sec Sodium 135 L (136-145) meq/L Potassium 4.4 (3.5-5.1) meq/L Chloride 98 (98-107) meq/L Carbon Dioxide 32.4 H (21.0-32.0) meq/L Anion Gap 5 (5-15) meq/L BUN 21 H (7-18) mg/dL Creatinine 0.78 (0.50-1.00) mg/dL Estimated GFR 70 L (>89) mL/min Random Glucose 81 (74-106) mg/dL Calcium 8.2 L (8.5-10.1) mg/dL Imaging Data Attestation: I personally reviewed and interpreted this imaging study as follows : My impression: Brain CT shows small left frontal hemorrhagic contusion. Pelvic fracture noted on x-ray of the pelvis, left pubic ramus Radiologist's impression: Head CT 11/08/18 16:33 CONCLUSION: 1. Focal small areas of hemorrhagic contusions are noted in the left frontal lobe. This is characteristic of recent trauma. 2. Focal soft tissue swelling of the scalp overlying the left for head. The underlying calvarium is grossly intact. . Pelvis X-Ray 11/08/18 16:33 CONCLUSION: 1. Fracture deformity of the superior left pubic rami which appears acute. 2. The hips appear intact. 3. Moderate to severe osteopenia. Discharge Plan Discharge Disposition Patient Disposition: ED Admit(ED Internal Use Only) Discharge Order Discharge Orders: ED Use Only Admit Order (Routine); Ordered 11/08/18 Ordered By: Jordan Martinez Discharge Details Diagnosis: ICH (intracerebral hemorrhage), Fracture of pubic ramus Physicians Team ED Provider: Jordan Martinez Primary Care Provider: Jeremiah Santacruz Rxs /Orders / Referrals /Forms Prescriptions: No Action No Known Home Medications RF: 0 Discharge Interventions Interventions: Vital Signs Last Done: 11/08/18 18:33 Status ED Status: With Doctor
--- NOTE | 2018-11-08 16:58 | XR ---
EXAM DATE: 11/08/2018 4:53 PM EST AGE/SEX: 88 years / Female INDICATIONS: Fall, pain all over. CLINICAL DATA: This is the patient's initial encounter. Patient reports that signs and symptoms have been present for 1 day and indicates a pain score of Nonresponsive. MEDICAL/SURGICAL HISTORY: None. None. COMPARISON: No prior exams available for comparison. FINDINGS: A single AP view of the pelvis was obtained and demonstrates diffuse moderate to severe osteopenia. T here is a subtle fracture deformity of the left superior pubic rami. The right pubic rami appears int act. There are mild degenerative changes involving both hips with sclerosis and mild spurring. Sacrum appears grossly intact. Scoliosis and mild degenerative changes present in the lumbar spine. CONCLUSION: 1. Fracture deformity of the superior left pubic rami which appears acute. 2. The hips appear intact. 3. Moderate to severe osteopenia. Electronically signed by: Spencer Weiss MD 11/08/2018 4:56 PM EST
--- NOTE | 2018-11-08 17:38 | CT ---
EXAM DATE: 11/08/2018 5:31 PM EST AGE/SEX: 88 years / Female INDICATIONS: Trauma. Fall. Left frontal bruising and swelling. CLINICAL DATA: This is the patient's initial encounter. Patient reports that signs and symptoms have been present for 1 day and indicates a pain score of 4/10. MEDICAL/SURGICAL HISTORY: None. None. RADIATION DOSE: 47.83 CTDI (mGy) COMPARISON: No prior exams available for comparison. TECHNIQUE: CT of the head without contrast. Using automated exposure control and adjustment of the mA and/or kV according to patient size, radiation dose was kept as low as reasonably achievable to ob tain optimal diagnostic quality images. DICOM format image data is available electronically for revi ew and comparison. FINDINGS: Cerebrum: The ventricles are normal for age. No evidence of midline shift, mass lesion or acute inf arction. However, there are a few small hemorrhagic contusions involving the left frontal lobe adjace nt to the area of external soft tissue swelling of the scalp. The hemorrhagic contusions measure abou t 7 mm. No extraaxial fluid collections are seen. Posterior Fossa: The cerebellum and brainstem are intact. The 4th ventricle is midline. The cerebe llopontine angle is unremarkable. Extracranial: The visualized portion of the orbits is intact. There is soft tissue swelling overlyin g the left for head. The underlying calvarium is grossly intact. Skull: The calvaria is intact. No evidence of skull fracture. CONCLUSION: 1. Focal small areas of hemorrhagic contusions are noted in the left frontal lobe. This is character istic of recent trauma. 2. Focal soft tissue swelling of the scalp overlying the left for head. The underlying calvarium is grossly intact. . Electronically signed by: Tomy Somers MD 11/08/2018 5:36 PM EST
[2018-11-08 18:39] LABS: Baso # (Auto) 0.2 th/mm3 (0.0-0.2); Baso % (Auto) 1.9 % (0.0-2.0); Eos % (Auto) 0.5 % (0.0-4.0); Hematocrit 43.3 % (35.0-46.0); Hemoglobin 14.1 gm/dL (11.6-15.3); Lymph # (Auto) 0.4 th/mm3 (1.0-4.8); Lymph % (Auto) 3.7 % (9.0-44.0); Mean Corpuscular HGB Conc 32.4 % (32.0-36.0); Mean Corpuscular Hemoglobin 30.5 pg (27.0-34.0); Mean Platelet Volume 8.4 fL (7.0-11.0); Mono # (Auto) 0.4 th/mm3 (0.0-0.9); Mono % (Auto) 4.6 % (0.0-8.0); Neut # (Auto) 8.8 th/mm3 (1.8-7.7); Neut % (Auto) 89.3 % (16.0-70.0); Platelet Count 135 th/mm3 (150-450); Red Blood Count 4.61 mil/mm3 (4.00-5.30); Red Cell Distribution Width 14.7 % (11.6-17.2); White Blood Count 9.8 th/mm3 (4.0-11.0)
[2018-11-08 18:40] LABS: Potassium 4.4 meq/L (3.5-5.1)
[2018-11-08 18:42] LABS: Calcium 8.2 mg/dL (8.5-10.1)
[2018-11-08 18:43] LABS: Carbon Dioxide 32.4 meq/L (21.0-32.0)
[2018-11-08 18:44] LABS: Activated Partial Thrombo Time 28.2 sec (23.4-31.7); INR 1.2 Ratio; Prothrombin Time 11.9 sec (9.8-11.6)
[2018-11-08 19:13] LABS: Lymphocytes 5 % (9-44); Monocytes 2 % (0-8)
[2018-11-08 19:14] LABS: Platelet Morphology Normal (Normal)
--- NOTE | 2018-11-08 22:29 | P.CONNS ---
History of Present Illness Requesting Physician: Jordan Martinez Primary Care Provider: Jeremiah Santacruz MD History of Present Illness: This is an 88 year old female whotripped while carrying groceries in and fell and hit the left side of her forehead on the ground. She has a large cephalohematoma. She is denying significant head or neck pain now. She did not lose consciousness. No seizure activity noted. No tongue bitting. No incontinence of stool or urine She denies blood thinners. She is got a bit of muscular soreness in the groin on the left side. PMFSH - History History Provided By: Patient - Medical History Medical History: Medical History (Last Reviewed 11/11/18 @ 09:12 by Rubens Moon) Patient denies medical problems - Surgical History Surgical History: Surgical History (Last Reviewed 11/11/18 @ 09:12 by Rubens Moon) No history of previous surgery - Tobacco History Second Hand Smoke Exposure: No Tobacco Use In Past 30 Days: No Smoking Status: Never smoker - Alcohol History How Often Do You Have a Drink Containing Alcohol: Never - Substance Use History Substance History: No History of Abuse - Travel History Recent Travel in the [place] Within the Last 8 Weeks: No Recent Travel Out of the Country Within the Last 8 Weeks: No - Immunization History Tetanus Immunization: Never Vaccinated Hx Influenza Vaccine This Season: No Medications and Allergies Allergies Allergy/AdvReac Type Severity Reaction Status Date / Time clarithromycin Allergy Mild Nausea Verified 11/08/18 18:29 clindamycin Allergy Mild Nausea Verified 11/08/18 18:29 ofloxacin Allergy Mild Nausea Verified 11/08/18 18:29 paroxetine Allergy Mild Nausea Verified 11/08/18 18:29 penicillin G Allergy Mild Nausea Verified 11/08/18 18:29 sulfamethoxazole Allergy Mild Nausea Verified 11/08/18 18:29 trimethoprim Allergy Mild Nausea Verified 11/08/18 18:29 venlafaxine Allergy Mild Nausea Verified 11/08/18 18:29 acetaminophen AdvReac Intermediate THROAT Verified 11/08/18 18:29 GETS RED. aspirin AdvReac Intermediate UPSET Verified 11/08/18 18:29 STOMACH ibuprofen AdvReac Mild NAUSEA Verified 11/08/18 18:29 Exam Vital signs: Vital Signs 11/08/18 16:16 11/08/18 16:38 11/08/18 16:40 Temperature 97.9 F Pulse Rate 86 Respiratory Rate 16 Blood Pressure 143/88 H Pulse Oximetry 11/08/18 18:33 11/08/18 20:00 11/08/18 21:26 Temperature Pulse Rate 94 H 82 93 H Respiratory Rate 16 18 18 Blood Pressure 112/89 126/64 109/71 Pulse Oximetry 98 93 L 94 L Intake & Output 11/08/18 11/08/18 11/09/18 06:59 18:59 06:59 Weight 41.49 kg Other: Weight On Admission 41.49 kg Narrative: The patient is alert, awake. Comfortable, in no acute distress. Speech is fluent. Cranial nerve examination: pupils to be equal, round and reactive to light. Extra-ocular movements are intact. Facial motor and sensory function are normal and symmetrical. Gross hearing decreased. Sternocleidomastoid and trapezius muscles are symmetrical. Other cranial nerves are intact. Neck is soft and supple with a good, but decreased range of motion without pain. Muscle strength is normal in all muscle groups of both upper and lower extremities. Sensory examination is intact to light touch and pin prick in both the upper and lower extremities. Deep tendon reflexes are symmetrical in both upper and lower extremities. There is a bilateral plantar flexion response. Cerebellar examination is unremarkable, without deficits. Lungs are clear Heart regular rhythm is regular rate Skin warm and dry Results - Laboratory Findings CBC and BMP: 11/11/18 06:50 11/11/18 06:50 Abnormal lab findings: Abnormal Labs 11/08/18 11/08/18 11/08/18 18:24 18:24 18:24 Plt Count 135 L Neut % (Auto) 89.3 H Lymph % (Auto) 3.7 L Neut # (Auto) 8.8 H Lymph # (Auto) 0.4 L Seg Neuts % (Manual) 83 H Band Neuts % (Manual) 10 H Lymphocytes % (Manual) 5 L Abs Neuts (Manual) 9.1 H Platelet Estimate Low L PT 11.9 H Sodium 135 L Carbon Dioxide 32.4 H BUN 21 H Estimated GFR 70 L Calcium 8.2 L Assessment and Plan - Plan I have reviewed the clinical and radiological findings Head CT 11/08/18 16:33 CONCLUSION: 1. Focal small areas of hemorrhagic contusions are noted in the left frontal lobe. This is characteristic of recent trauma. 2. Focal soft tissue swelling of the scalp overlying the left for head. The underlying calvarium is grossly intact. Pelvis X-Ray 11/08/18 16:33 CONCLUSION: 1. Fracture deformity of the superior left pubic rami which appears acute. 2. The hips appear intact. 3. Moderate to severe osteopenia. Neuro: neuro checks in a serial fashion. Pulmonary: aggressive pulmonary toilette, nasotracheal suction, and breathing treatments with nebulizers. Daily PT and OT Renal: Continue to monitor closely urine output, BUN and creatinine Endocrine: Continue to Monitor serial Acu checks and SSI as needed in detail ID continue to monitor for signs of infection Continue Protonix for stress ulcer prophylaxis Continue Nestor hose and SCD's for DVT prophylaxis Further recommendations will be provided depending on the patient's clinical evaluation and follow up studies.
[2018-11-08] MEDS ORDERED: Magnesium Sulfate Inj 2 GM in Sodium Chlor 0.9% Inj 96 ML IV.SIG PRN (22:42)
[2018-11-08] MEDS ORDERED: Sodium Phosphate Inj 30 MMOL in Sodium Chlor 0.9% Inj 250 ML IV.SIG PRN (22:42)
[2018-11-08] MEDS ORDERED: Potassium Chloride 25 MEQ Effervescent Tablet PO PRN (22:42)
[2018-11-08] MEDS ORDERED: Magnesium Sulfate Inj 4 GM in Sodium Chlor 0.9% Inj 92 ML IV.SIG PRN (22:42)
[2018-11-08] MEDS ORDERED: Potassium Chlor 40 mEq Premix 40 MEQ/100 ML PIGGYBACK IV.SIG PRN ×2 (22:42)
[2018-11-08] MEDS ORDERED: Magnesium Oxide 400 MG Tablet PO PRN (22:42)
[2018-11-08] MEDS ORDERED: Potassium Chlor 20 mEq Premix 20 MEQ/100 ML PIGGYBACK IV.SIG PRN ×2 (22:42)
[2018-11-08] MEDS ORDERED: Potassium Phosphate 500 MG Soluble Tablet PO PRN ×2 (22:42)
[2018-11-08] MEDS ORDERED: Potassium Phosphate Inj 30 MMOL in Sodium Chlor 0.9% Inj 250 ML IV.SIG PRN (22:42)
[2018-11-08] MEDS ORDERED: Acetaminophen 325 MG Tablet PO PRN (22:50)
[2018-11-08] MEDS: Sod Chloride 0.9% Inj 1,000 ML IV.SIG SCH (23:07)
[2018-11-08] MEDS: levETIRAcetam 500 MG Tablet PO SCH (23:07)
--- NOTE | 2018-11-09 01:28 | CT ---
EXAM DATE: 11/09/2018 1:12 AM EST AGE/SEX: 88 years / Female INDICATIONS: Altered mental status. Evaluate for worsening hemorrhagic contusions. CLINICAL DATA: This is the patient's initial encounter. Patient reports that signs and symptoms have been present for 1 day and indicates a pain score of Nonresponsive. MEDICAL/SURGICAL HISTORY: Non-responsive. Non-responsive. RADIATION DOSE: 56.35 CTDI (mGy) COMPARISON: [facility], CT HEAD W/O CONTRAST, 11/08/2018. . TECHNIQUE: CT of the head without contrast. Using automated exposure control and adjustment of the mA and/or kV according to patient size, radiation dose was kept as low as reasonably achievable to ob tain optimal diagnostic quality images. DICOM format image data is available electronically for revi ew and comparison. FINDINGS: Left frontal sulcal subarachnoid hemorrhage is again seen, slightly more prominent than on the compar sammi study of 11/08/2018. No evidence of mass effect or midline shift. Left scalp hematoma again seen . No other areas of acute hemorrhage identified. Ventricles within normal limits. No evidence of acut e infarct or intracranial mass. CONCLUSION: Subarachnoid hemorrhage left frontal lobe minimally more prominent than on the comparison study. No e vidence of mass effect. . Electronically signed by: Marko Polanco MD 11/09/2018 1:26 AM EST
[2018-11-09] MEDS ORDERED: Morphine Sulfate Inj 2 MG/ML Vial IV.PUSH PRN ×2 (06:43→18:02)
--- NOTE | 2018-11-09 08:01 | P.NPEVAL ---
Patient History - Record/History Review Reason for Referral: The patient is a 88 year old presumed right handed woman status post complicated mild traumatic brain injury secondary to a fall on 11/08/2018. She was walking with groceries and fell, striking her head. No LOC. Head CT showed left sided contusion of the frontal lobe. She is referred for baseline neurobehavioral status examination per trauma protocol to assess cognitive, behavioral and emotional aspects of the injury and to provide treatment recommendations. [facility] - History History Provided By: Patient - Medical History Medical History: Medical History (Last Updated 11/08/18 @ 16:15 by Santa Laguna RN) Patient denies medical problems - Surgical History Surgical History: Surgical History (Last Updated 11/08/18 @ 16:15 by Santa Laguna RN) No history of previous surgery - Tobacco History Second Hand Smoke Exposure: No Tobacco Use In Past 30 Days: No Smoking Status: Never smoker - Alcohol History How Often Do You Have a Drink Containing Alcohol: Never - Substance Use History Substance History: No History of Abuse - Travel History Recent Travel in the [place] Within the Last 8 Weeks: No Recent Travel Out of the Country Within the Last 8 Weeks: No - Immunization History Tetanus Immunization: Never Vaccinated Hx Influenza Vaccine This Season: No Medications Active Medications Acetaminophen (Tylenol) 650 mg PO Q4H PRN PRN Reason: PAIN SCALE 1 TO 10 Al Hydroxide/Mg Hydroxide (Milk Of Millie Guillen) 30 ml PO BID CHRISTINE Chlorhexidine Gluconate (Chlorhexidine 2% Cloth) 3 pack TOPICAL DAILY@0400 CHRISTINE Stop: 11/15/18 03:59 Chlorhexidine Gluconate (Chlorhexidine 2% Cloth) 3 pack TOPICAL DAILY@0400 PRN PRN Reason: Extra cloth needed Stop: 11/15/18 03:59 Docusate Sodium (Colace) 100 mg PO BID CHRISTINE Famotidine (Pepcid) 20 mg PO BID CHRISTINE Magnesium Sulfate 4 gm/ Sodium (Chloride) 100 mls @ 50 mls/hr IV.SIG UNSCH PRN PRN Reason: For Magnesium 0.9 - 1.1 mg/dL Magnesium Sulfate 2 gm/ Sodium (Chloride) 100 mls @ 50 mls/hr IV.SIG UNSCH PRN PRN Reason: For Magnesium 1.2 - 1.6 mg/dL Potassium Chloride (Kcl 40 Meq Premix Inj) 40 meq in 100 mls @ 25 mls/hr IV.SIG Q2H PRN PRN Reason: For Potassium 2.8 - 3.2 mEq/L Potassium Chloride (Kcl 20 Meq Premix Inj) 20 meq in 100 mls @ 50 mls/hr IV.SIG Q2H PRN PRN Reason: For Potassium 3.3 - 3.5 mEq/L Potassium Chloride (Kcl 40 Meq Premix Inj) 40 meq in 100 mls @ 25 mls/hr IV.SIG UNSCH PRN PRN Reason: For Potassium 3.3 - 3.5 mEq/L Potassium Chloride (Kcl 20 Meq Premix Inj) 20 meq in 100 mls @ 50 mls/hr IV.SIG Q2H PRN PRN Reason: For Potassium 2.8 - 3.2 mEq/L Potassium Phosphate 30 mmol/ (Sodium Chloride) 260 mls @ 42 mls/hr IV.SIG UNSCH PRN PRN Reason: SEE LABEL COMMENTS Sodium Phosphate 30 mmol/ (Sodium Chloride) 260 mls @ 42 mls/hr IV.SIG UNSCH PRN PRN Reason: For Phosphorus < 2.5 mg/dL Sodium Chloride (Ns Inj) 1,000 mls @ 60 mls/hr IV.SIG .[id number] [facility] Last Admin: 11/08/18 23:07 Dose: 60 mls/hr Levetiracetam (Keppra) 500 mg PO BID [facility] Last Admin: 11/08/18 23:07 Dose: 500 mg Magnesium Oxide (Mag-Ox) 800 mg PO UNSCH PRN PRN Reason: For Magnesium 1.2 - 1.6 mg/dL Morphine Sulfate (Morphine Inj) 2 mg IV.PUSH Q4H PRN PRN Reason: Break through pain Potassium Bicarb/Potassium Chloride (K-Lyte Cl Eff) 50 meq PO UNSCH PRN PRN Reason: For Potassium 3.3 - 3.5 mEq/L Potassium Phosphate (K-Phos Original) 2,000 mg PO Q4H PRN PRN Reason: Phosphorus Less Than 2.5 mg/dL Potassium Phosphate (K-Phos Original) 2,000 mg PO UNSCH PRN PRN Reason: SEE LABEL COMMENTS Sodium Chloride (Ns Flush) 2 ml IV.FLUSH UNSCH PRN PRN Reason: FLUSH AFTER USING IV ACCESS Mental Status Assessment - Mental Status Orientation: oriented to: Self, Place, Time, Situation Mental Status: WFL: Language/interactions, Attention, Learning/memory, Problem- solving, Variable: Thought processing Absent: Hallucinations, Delusions Adjustment/Coping Assessment - Adjustment/Coping Adjustment/Coping: None: Awareness, Insight - Observation In terms of emotional functioning, the patient demonstrated normal adjustment. This patient demonstrated no signs of agitation, impulsivity or disinhibition, nor was there remarkable evidence of a formal thought disorder or psychosis. There was no evidence of depression or anxiety. Thought content was free from suicidal, homicidal or paranoid ideation, and thought processes were logical and goal-directed but slow. The patients mood was euthymic, and her affect was stable and appropriate. The patient appears to possess insight and awareness into their situation and within the limits of this brief evaluation, adequate] judgment. Behavior - Behavior Treatment Engagement: Average - Observation Behaviorally, the patient demonstrated no signs of agitation, impulsivity or disinhibition. There was no remarkable evidence of a formal thought disorder or psychosis. - Goals LTG Status: Deferred STG Status: Deferred - Team Members Team Members: Neuropsychologist Diagnosis/Discharge Plan - Diagnosis (1) Mild major neurocognitive disorder as late effect of traumatic brain injury without behavioral disturbance Status: Acute Impression: 88 year old woman s/p complicated mild traumatic brain injury 2T fall on 2017. [facility] Level: Level Maximizing Acute Care Outcome: It is recommended that the patient be monitored for emergent behavioral impulsivity as the medical condition evolves. This patients neuropathological challenges may limit rehabilitation potential going forward, and these challenges will require specialized therapeutic skills to maximize outcome. At this point in the recovery process, the patient does retain cognitive capacity as the patient is able to understand a situation and its likely consequences, and she is able to manipulate information rationally. Cognitive capacity will be assessed throughout the recovery process. - Discharge Planning Anticipated Problems: Ongoing areas of concern will include behavioral impulsivity, lack of insight and judgment, which is expected to improve with time and treatment. Treatment Plan: This clinician will continue to follow with you throughout the course of this patients critical care treatment, and I will be available to meet with the patients family/support system to facilitate their understanding and the ongoing care of their family member. The goals of neuropsychological intervention shall be both educational and supportive to the family/support system as is deemed clinically appropriate. Thank you for the opportunity to assist in this patients care. Jayden Perry, Ph.D., ABPP Board Certified in Clinical Neuropsychology [place] [employer] [place] Licensed Psychologist #[id number]
[2018-11-09] MEDS: Docusate Sodium 100 MG Capsule PO SCH ×2 (08:53→20:36)
[2018-11-09] MEDS: Famotidine 20 MG Tablet PO SCH ×2 (08:53→20:36)
[2018-11-09] MEDS: levETIRAcetam 500 MG Tablet PO SCH ×2 (08:53→20:36)
--- NOTE | 2018-11-09 10:28 | XR ---
EXAM DATE: 11/09/2018 10:20 AM EST AGE/SEX: 88 years / Female INDICATIONS: Trauma CLINICAL DATA: This is the patient's initial encounter. Patient reports that signs and symptoms have been present for 1 week and indicates a pain score of 0/10. MEDICAL/SURGICAL HISTORY: Non-responsive. Non-responsive. COMPARISON: [facility], CHEST SINGLE AP, 01/03/2018. . FINDINGS: Chest is stable in appearance compared to recent study. Lungs are hyperinflated. Pleural parenchymal scarring remains evident in both apices. Heart and mediastinal structures are stable. 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
--- NOTE | 2018-11-09 10:49 | P.PNCC ---
Subjective Brief History: This 88-year-old female tripped while carrying groceries and hit her head against a hard surface, probably concrete. She was transferred to [facility], worked up partially, found to have lacerations of the left forehead, intracranial hemorrhage and fracture of the superior left ramus pubis. Hence, she is transferring to our institution at the request of Dr. Moreno. Patient with intracranial hemorrhage to be admitted to ICU and watched. The patient will have another CAT scan about 6-8 hours from now and then another one probably in the next day depending on progression. In addition, the patient never had a CT of the neck and in patients with intracranial or cranial injuries, CT of the neck, especially in this age group, is required because patients will have silent fractures. In addition, the patient requires EKG, CT of abdomen and pelvis to evaluate for any intra-abdominal pelvic bleeding in the face of pubic bone fracture, especially in fragile patients, that can cause laceration of veins and problems which need to be addressed. At this point, the patient will remain in ICU. 24 Hour Review/Hospital Course: 11/09/2018 88-year-old female who fell from standing position while carrying groceries and sustained intracranial hemorrhage and pubic ramus fracture Patient was transferred from [facility] yesterday On initial exam patient was awake alert and neurologically intact At some point later on patient became more confused and clearly had change in neurologic status although she moves all 4 extremities and there was no motoric deficit Due to the cognitive deficit development patient underwent repeat CT scan of the brain which revealed some expansion of her bleeding areas This morning patient is awake alert and oriented Neurologically intact with no drift no lateralization Pupils equal reactive and CN II to XII are normal Wound on left forehead is clean and dry dressing has been removed we will leave the wound open to air Bilateral breath sounds heart regular rhythm Hemodynamically patient is stable Abdomen is soft tender of the left pubis Plan Repeat CT scan of the brain today CT of the neck abdomen and pelvis considering the patient's frail status and possible intra-abdominal injuries or hematomas Advance to regular diet Objective Vital Signs / I&O: Vital Signs 11/08/18 16:16 11/08/18 16:38 11/08/18 16:40 Temperature 97.9 F Pulse Rate 86 Respiratory Rate 16 Blood Pressure 143/88 H Pulse Oximetry 12/12/18 18:33 11/08/18 20:00 11/08/18 21:26 Temperature Pulse Rate 94 H 82 93 H Respiratory Rate 16 18 18 Blood Pressure 112/89 126/64 109/71 Pulse Oximetry 98 93 L 94 L 11/08/18 22:13 11/08/18 22:19 11/08/18 22:36 Temperature Pulse Rate 110 H 109 H 112 H Respiratory Rate 22 23 28 H Blood Pressure 112/55 L 130/73 Pulse Oximetry 89 L 89 L 95 11/08/18 23:00 11/08/18 23:30 11/09/18 00:00 Temperature 94.9 F L Pulse Rate 106 H 103 H 109 H Respiratory Rate 23 21 27 H Blood Pressure 117/66 109/71 118/70 Pulse Oximetry 97 99 73 L 11/09/18 00:09 11/09/18 00:31 11/09/18 00:38 Temperature Pulse Rate 99 H 97 H Respiratory Rate 24 20 Blood Pressure 134/87 138/90 Pulse Oximetry 100 100 100 11/09/18 01:00 11/09/18 01:30 11/09/18 02:00 Temperature Pulse Rate 102 H 96 H 96 H Respiratory Rate 23 16 15 Blood Pressure 148/85 H 128/75 130/78 Pulse Oximetry 95 97 100 11/09/18 02:30 11/09/18 03:00 11/09/18 03:30 Temperature Pulse Rate 98 H 96 H 93 H Respiratory Rate 15 15 15 Blood Pressure 138/82 136/84 140/88 Pulse Oximetry 98 98 99 11/09/18 04:00 11/09/18 04:30 11/09/18 05:00 Temperature 97.6 F Pulse Rate 94 H 95 H 96 H Respiratory Rate 15 16 16 Blood Pressure 138/95 H 127/82 132/86 Pulse Oximetry 99 100 98 11/09/18 05:30 11/09/18 06:00 11/09/18 06:04 Temperature Pulse Rate 92 H 104 H 98 H Respiratory Rate 17 37 H 29 H Blood Pressure 138/82 133/85 Pulse Oximetry 99 93 L 97 11/09/18 06:30 11/09/18 07:00 11/09/18 08:00 Temperature 97.6 F Pulse Rate 89 81 Respiratory Rate 17 Blood Pressure 130/76 161/65 H 159/72 H Pulse Oximetry 99 96 11/09/18 09:00 11/09/18 10:00 Temperature Pulse Rate 96 H 88 Respiratory Rate Blood Pressure 158/74 H 122/68 Pulse Oximetry 96 97 Intake & Output 11/08/18 11/09/18 11/09/18 18:59 06:59 18:59 Intake Total 120 / 120 Output Total 100 / 100 Balance 120 / 120 -100 / -100 Weight 41.49 kg Intake: Oral 120 / 120 Output: Urine 100 / 100 Other: # Voids 1 # Incontinent Voids 2 Weight On Admission 41.49 kg Result Diagrams: 11/08/18 18:24 11/08/18 18:24 Imaging: Impressions Head CT 11/08/18 16:33 CONCLUSION: 1. Focal small areas of hemorrhagic contusions are noted in the left frontal lobe. This is characteristic of recent trauma. 2. Focal soft tissue swelling of the scalp overlying the left for head. The underlying calvarium is grossly intact. . Pelvis X-Ray 11/08/18 16:33 CONCLUSION: 1. Fracture deformity of the superior left pubic rami which appears acute. 2. The hips appear intact. 3. Moderate to severe osteopenia. Head CT 11/09/18 00:00 CONCLUSION: Subarachnoid hemorrhage left frontal lobe minimally more prominent than on the comparison study. No evidence of mass effect. . 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: 88-year-old female who fell from standing position while carrying groceries and sustained intracranial hemorrhage and pubic ramus fracture Patient was transferred from [facility] yesterday On initial exam patient was awake alert and neurologically intact At some point later on patient became more confused and clearly had change in neurologic status although she moves all 4 extremities and there was no motoric deficit Due to the cognitive deficit development patient underwent repeat CT scan of the brain which revealed some expansion of her bleeding areas This morning patient is awake alert and oriented Neurologically intact with no drift no lateralization Pupils equal reactive and CN II to XII are normal Wound on left forehead is clean and dry dressing has been removed we will leave the wound open to air Hemodynamic/Cardiac: Hemodynamically patient is stable A Pulmonary/Respiratory: Bilateral breath sounds patient has COPD and senile emphysema as would be expected with age with atrophy of the chest wall musculature but good inspiratory effort and mechanics Abdomen/GI Nutrition: Abdomen soft active bowel sounds advance diet Renal/I&O: Renal function preserved Hep-Lock IV Assessment and Plan Attestation: Repeat CT scan of the brain today CT of the neck abdomen and pelvis considering the patient's frail status and possible intra-abdominal injuries or hematomas Advance to regular diet Critical care 36 minutes
--- NOTE | 2018-11-09 11:28 | MH ---
cc: Fermin Ignacio MD DATE OF ADMISSION: 11/08/2018 REASON FOR ADMISSION: Traumatic brain injury. HISTORY OF PRESENT ILLNESS: This 88-year-old female tripped while carrying groceries and hit her head against a hard surface, probably concrete. She was transferred to [facility], worked up partially, found to have lacerations of the left forehead, intracranial hemorrhage and fracture of the superior left ramus pubis. Hence, she is transferring to our institution at the request of Dr. Moreno. PAST MEDICAL HISTORY: I do not have. The patient denies medical problems. The patient denies surgical history. SOCIAL HISTORY: Never smoked, does not drink. PHYSICAL EXAMINATION: GENERAL: Reveals a pleasant 88-year-old female very hard of hearing. Normocephalic. Trauma to the head consistent with laceration of the left forehead, which has been repaired with some Steri-Strips and sutures as well as some periorbital and facial swelling and suffusion of blood. HEENT: Pupils equal, reactive. Extraocular muscles are intact. No hemotympanum. No richmond sign, no raccoon's eyes in the true since, this is just from the local injury. NECK: Bilateral carotid pulses. No bruits. The patient does not have neck tenderness. CHEST: Bilateral breath sounds, decreased over both lungs stiles consistent with a senile emphysema, although the patient never smoked. HEART: Regular rhythm. ABDOMEN: Soft. No rebound, no guarding, no masses. Tender over the pubic area, but deformities are not present. I clearly know from the x-ray the patient has pubic ramus fracture. Otherwise, I would not even perceive any abnormality other than pain. EXTREMITIES: The patient has bilateral femoral and popliteal pulse palpable. The patient's dorsalis pedis and posterior tibial by palpation. No signs of vascular deficit. BACK: Grossly normal. IMPRESSION AND RECOMMENDATION: Patient with intracranial hemorrhage to be admitted to ICU and watched. The patient will have another CAT scan about 6-8 hours from now and then another one probably in the next day depending on progression. In addition, the patient never had a CT of the neck and in patients with intracranial or cranial injuries, CT of the neck, especially in this age group, is required because patients will have silent fractures. In addition, the patient requires EKG, CT of abdomen and pelvis to evaluate for any intra-abdominal pelvic bleeding in the face of pubic bone fracture, especially in fragile patients, that can cause laceration of veins and problems which need to be addressed. At this point, the patient will remain in ICU. CRITICAL CARE TIME: 38 minutes. MD KASH Shaikh/[email or web address]/lilliam , 10:35 AM , 10:44 AM
--- NOTE | 2018-11-09 11:58 | ECG ---
Date Performed: 11/09/2018 Time Performed: 10:38:47 PTAGE: 88 years EKG: Sinus rhythm WITH SINUS ARRHYTHMIA MARKED LEFT AXIS DEVIATION LOW QRS VOLTAGE PATTERN CONSISTENT WITH PULMONARY D ISEASE RIGHT BUNDLE BRANCH BLOCK ABNORMAL ECG No significant change from prior electrocardiogram. PREVIOUS TRACING : 01/03/2018 17.57 DOCTOR: [employer] Steward Interpretating Date/Time 11/09/2018 11:58:03
[2018-11-09] MEDS: Sod Chloride 0.9% Inj 1,000 ML IV.SIG SCH (15:38)
--- NOTE | 2018-11-09 19:46 | P.CONOP ---
[facility] Orthopedics Consult Note - [facility] Consult date: 11/09/18 Requesting physician: Fermin Igancio Chief complaint: Pelvic fx Narrative: 88-year-old female sustained a mechanical fall while carrying groceries. Presents with multiple injuries including a left superior pubic rami fracture. Orthopedic surgery consultation was requested. On presentation at bedside, patient relates pain localized to her left hip. She denies pain elsewhere about the upper or lower extremities. She denies paresthesias. She denies other complaints. Review of Systems Constitutional: Denies chills, Denies fever(s) Cardiovascular: Denies chest pain Respiratory: Denies cough Gastrointestinal: Denies abdominal pain Musculoskeletal: Reports joint pain Neurologic: Denies tingling/numbness/burning sensations Psychiatric: Denies anxiety, Denies depression PMF - History History Provided By: Patient - Medical History Medical History: Medical History (Last Reviewed 11/09/18 @ 12:47 by Rian Damian) Patient denies medical problems - Surgical History Surgical History: Surgical History (Last Reviewed 11/09/18 @ 12:47 by Rian Damian) No history of previous surgery - Tobacco History Second Hand Smoke Exposure: No Tobacco Use In Past 30 Days: No Smoking Status: Never smoker - Alcohol History How Often Do You Have a Drink Containing Alcohol: Never - Substance Use History Substance History: No History of Abuse - Travel History Recent Travel in the [place] Within the Last 8 Weeks: No Recent Travel Out of the Country Within the Last 8 Weeks: No - Immunization History Tetanus Immunization: Never Vaccinated Hx Influenza Vaccine This Season: No Medications and Allergies Active Medications: Active Medications Acetaminophen (Tylenol) 650 mg PO Q4H PRN PRN Reason: PAIN SCALE 1 TO 10 Al Hydroxide/Mg Hydroxide (Milk Of Millie Guillen) 30 ml PO BID [facility] Last Admin: 11/09/18 08:53 Dose: 30 ml Chlorhexidine Gluconate (Chlorhexidine 2% Cloth) 3 pack TOPICAL DAILY@0400 [facility] Stop: 11/15/18 03:59 Chlorhexidine Gluconate (Chlorhexidine 2% Cloth) 3 pack TOPICAL DAILY@0400 PRN PRN Reason: Extra cloth needed Stop: 11/15/18 03:59 Docusate Sodium (Colace) 100 mg PO BID [facility] Last Admin: 11/09/18 08:53 Dose: 100 mg Famotidine (Pepcid) 20 mg PO BID [facility] Last Admin: 12/13/18 08:53 Dose: 20 mg Magnesium Sulfate 4 gm/ Sodium (Chloride) 100 mls @ 50 mls/hr IV.SIG UNSCH PRN PRN Reason: For Magnesium 0.9 - 1.1 mg/dL Magnesium Sulfate 2 gm/ Sodium (Chloride) 100 mls @ 50 mls/hr IV.SIG UNSCH PRN PRN Reason: For Magnesium 1.2 - 1.6 mg/dL Potassium Chloride (Kcl 40 Meq Premix Inj) 40 meq in 100 mls @ 25 mls/hr IV.SIG Q2H PRN PRN Reason: For Potassium 2.8 - 3.2 mEq/L Potassium Chloride (Kcl 20 Meq Premix Inj) 20 meq in 100 mls @ 50 mls/hr IV.SIG Q2H PRN PRN Reason: For Potassium 3.3 - 3.5 mEq/L Potassium Chloride (Kcl 40 Meq Premix Inj) 40 meq in 100 mls @ 25 mls/hr IV.SIG UNSCH PRN PRN Reason: For Potassium 3.3 - 3.5 mEq/L Potassium Chloride (Kcl 20 Meq Premix Inj) 20 meq in 100 mls @ 50 mls/hr IV.SIG Q2H PRN PRN Reason: For Potassium 2.8 - 3.2 mEq/L Potassium Phosphate 30 mmol/ (Sodium Chloride) 260 mls @ 42 mls/hr IV.SIG UNSCH PRN PRN Reason: SEE LABEL COMMENTS Sodium Phosphate 30 mmol/ (Sodium Chloride) 260 mls @ 42 mls/hr IV.SIG UNSCH PRN PRN Reason: For Phosphorus < 2.5 mg/dL Sodium Chloride (Ns Inj) 1,000 mls @ 60 mls/hr IV.SIG .[id number] [facility] Last Admin: 11/09/18 15:38 Dose: 60 mls/hr Levetiracetam (Keppra) 500 mg PO BID [facility] Last Admin: 11/09/18 08:53 Dose: 500 mg Magnesium Oxide (Mag-Ox) 800 mg PO UNSCH PRN PRN Reason: For Magnesium 1.2 - 1.6 mg/dL Morphine Sulfate (Morphine Inj) 1 mg IV.PUSH Q4H PRN PRN Reason: Break through pain Potassium Bicarb/Potassium Chloride (K-Lyte Cl Eff) 50 meq PO UNSCH PRN PRN Reason: For Potassium 3.3 - 3.5 mEq/L Potassium Phosphate (K-Phos Original) 2,000 mg PO Q4H PRN PRN Reason: Phosphorus Less Than 2.5 mg/dL Potassium Phosphate (K-Phos Original) 2,000 mg PO UNSCH PRN PRN Reason: SEE LABEL COMMENTS Sodium Chloride (Ns Flush) 2 ml IV.FLUSH UNSCH PRN PRN Reason: FLUSH AFTER USING IV ACCESS Allergies Allergy/AdvReac Type Severity Reaction Status Date / Time clarithromycin Allergy Mild Nausea Verified 11/08/18 18:29 clindamycin Allergy Mild Nausea Verified 11/08/18 18:29 ofloxacin Allergy Mild Nausea Verified 11/08/18 18:29 paroxetine Allergy Mild Nausea Verified 11/08/18 18:29 penicillin G Allergy Mild Nausea Verified 11/08/18 18:29 sulfamethoxazole Allergy Mild Nausea Verified 11/08/18 18:29 trimethoprim Allergy Mild Nausea Verified 11/08/18 18:29 venlafaxine Allergy Mild Nausea Verified 11/08/18 18:29 acetaminophen AdvReac Intermediate THROAT Verified 11/08/18 18:29 GETS RED. aspirin AdvReac Intermediate UPSET Verified 11/08/18 18:29 STOMACH ibuprofen AdvReac Mild NAUSEA Verified 11/08/18 18:29 Home Medications Medication Instructions Recorded Confirmed Type No Known Home Medications 11/08/18 11/08/18 History Exam Vital signs: Vital Signs 11/08/18 20:00 11/08/18 21:26 11/08/18 22:13 Temperature Pulse Rate 82 93 H 110 H Respiratory Rate 18 18 22 Blood Pressure 126/64 109/71 Pulse Oximetry 93 L 94 L 89 L 11/08/18 22:19 11/08/18 22:36 11/08/18 23:00 Temperature Pulse Rate 109 H 112 H 106 H Respiratory Rate 23 28 H 23 Blood Pressure 112/55 L 130/73 117/66 Pulse Oximetry 89 L 95 97 11/08/18 23:30 11/09/18 00:00 11/09/18 00:09 Temperature 94.9 F L Pulse Rate 103 H 109 H Respiratory Rate 21 27 H Blood Pressure 109/71 118/70 Pulse Oximetry 99 73 L 100 11/09/18 00:31 11/09/18 00:38 11/09/18 01:00 Temperature Pulse Rate 99 H 97 H 102 H Respiratory Rate 24 20 23 Blood Pressure 134/87 138/90 148/85 H Pulse Oximetry 100 100 95 11/09/18 01:30 11/09/18 02:00 11/09/18 02:30 Temperature Pulse Rate 96 H 96 H 98 H Respiratory Rate 16 15 15 Blood Pressure 128/75 130/78 138/82 Pulse Oximetry 97 100 98 11/09/18 03:00 11/09/18 03:30 11/09/18 04:00 Temperature 97.6 F Pulse Rate 96 H 93 H 94 H Respiratory Rate 15 15 15 Blood Pressure 136/84 140/88 138/95 H Pulse Oximetry 98 99 99 11/09/18 04:30 11/09/18 05:00 11/09/18 05:30 Temperature Pulse Rate 95 H 96 H 92 H Respiratory Rate 16 16 17 Blood Pressure 127/82 132/86 138/82 Pulse Oximetry 100 98 99 11/09/18 06:00 11/09/18 06:04 11/09/18 06:30 Temperature Pulse Rate 104 H 98 H 89 Respiratory Rate 37 H 29 H 17 Blood Pressure 133/85 130/76 Pulse Oximetry 93 L 97 99 11/09/18 07:00 11/09/18 08:00 11/09/18 09:00 Temperature 97.6 F Pulse Rate 81 96 H Respiratory Rate Blood Pressure 161/65 H 159/72 H 158/74 H Pulse Oximetry 96 96 11/09/18 10:00 11/09/18 11:00 11/09/18 12:00 Temperature 97.7 F Pulse Rate 88 84 87 Respiratory Rate Blood Pressure 122/68 114/61 169/87 H Pulse Oximetry 97 99 97 11/09/18 13:00 11/09/18 14:00 11/09/18 15:00 Temperature Pulse Rate 70 85 95 H Respiratory Rate Blood Pressure 128/76 124/66 148/85 H Pulse Oximetry 100 96 94 L 11/09/18 16:00 11/09/18 17:00 11/09/18 18:00 Temperature 97.5 F L Pulse Rate 84 81 96 H Respiratory Rate Blood Pressure 115/67 145/72 H 144/76 H Pulse Oximetry 95 95 97 Intake & Output 11/09/18 11/09/18 11/10/18 06:59 18:59 06:59 Intake Total 120 / 120 2080 / 2080 Output Total 850 / 850 Balance 120 / 120 1230 / 1230 Weight 41.49 kg Intake: IV 1000 / 1000 NS Inj 1,000 ML @ 60 mls/hr IV. 1000 / 1000 SIG .[id number] [facility] Rx#:[id number] Oral 120 / 120 1080 / 1080 Output: Urine 850 / 850 Other: # Voids 1 # Incontinent Voids 2 Weight On Admission 41.49 kg - Constitutional no acute distress - Routine Respiratory Exam Absent: accessory muscle use - Routine Cardiovascular Exam Present: RRR - Routine Abdominal Exam Present: soft. Absent: distended - Routine Extremities Exam Comments: Focused evaluation of the left lower extremity demonstrates a negative log roll. There is no tenderness over the allowing the knee ankle or foot. Positive EHL / FHL / tibialis anterior /Gastroc. Sensation is intact to the sural, saphenous, SP, DP, tibial nerve distribution. 2+ DP pulse. Screening evaluation of the right lower and bilateral upper extremities demonstrate painless passive range of motion of the joints. - Routine Skin Exam Present: ecchymosis - Routine Neurological Exam Present: alert, oriented X3 Results - Labs Result Diagrams: 11/08/18 18:24 11/08/18 18:24 Labs: Laboratory Results - last 24 hr 11/08/18 11/09/18 11/09/18 22:30 00:50 07:30 POC Glucose 84 Nasal Screen MRSA (PCR) Not detected Not detected - Diagnostic results Imaging: Impressions Head CT 11/09/18 00:00 CONCLUSION: Subarachnoid hemorrhage left frontal lobe minimally more prominent than on the comparison study. No evidence of mass effect. . 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 No acute airspace disease Assessment and Plan - Assessment and Plan 88-year-old female presents status post mechanical fall with Left superior pubic rami fracture, nondisplaced No plans for orthopedic surgery intervention Physical therapy/occupational consultation Awaiting CT scan of pelvis for final review of fracture pattern, and to ensure no pelvic ring injury or acetabular involvement. Final weight-bearing precautions, pending review of CT scan
--- NOTE | 2018-11-09 21:31 | CT ---
EXAM DATE: 11/09/2018 9:28 PM EST AGE/SEX: 88 years / Female INDICATIONS: Head injury. Fall. CLINICAL DATA: This is the patient's initial encounter. Patient reports that signs and symptoms have been present for 1 day and indicates a pain score of 0/10. MEDICAL/SURGICAL HISTORY: None. None. RADIATION DOSE: 56.35 CTDI (mGy) COMPARISON: [facility] [place]/O [place]AST, 11/09/2018. . TECHNIQUE: CT of the head without contrast. Using automated exposure control and adjustment of the mA and/or kV according to patient size, radiation dose was kept as low as reasonably achievable to ob tain optimal diagnostic quality images. DICOM format image data is available electronically for revi ew and comparison. FINDINGS: Evolving subarachnoid hemorrhage in the left frontal high convexities. No new intercurrent hemorrhage . No midline shift with stable ventricle size. Basilar cisterns are intact. Brainstem and cerebellum are intact. Redemonstration of left frontal scalp hematoma. CONCLUSION: 1. Evolving subarachnoid hemorrhage in the left frontal high convexities. 2. No new intercurrent hemorrhage, hydrocephalus or midline shift. . Electronically signed by: Cortes Pozo MD Board Certified Radiologist 11/09/2018 9:30 PM MAHENDRA Bhnadari
--- NOTE | 2018-11-09 21:54 | CT ---
EXAM DATE: 11/09/2018 9:45 PM EST AGE/SEX: 88 years / Female INDICATIONS: Fall. Head injury. CLINICAL DATA: This is the patient's initial encounter. Patient reports that signs and symptoms have been present for 2 days and indicates a pain score of Nonresponsive. MEDICAL/SURGICAL HISTORY: Non-responsive. Non-responsive. RADIATION DOSE: 15.61 CTDI (mGy) COMPARISON: No prior exams available for comparison. TECHNIQUE: Contiguous axial images were obtained using helical multirow detector technique. The vol umetric data was post-processed with multiplanar reconstruction in oblique axial, sagittal, and coron al planes. Using automated exposure control and adjustment of the mA and/or kV according to patient s ize, radiation dose was kept as low as reasonably achievable to obtain optimal diagnostic quality luiza ges. DICOM format image data is available electronically for review and comparison. FINDINGS: Vertebrae: Normal vertebral body height. Alignment: Normal. No subluxation. C1-C2: Degenerative changes are seen at C1-C2 without fracture. C2-3: The bony spinal canal is normal in size. No evidence of disc bulge or herniation. The neural foramina are bilaterally patent. C3-4: The bony spinal canal is normal in size. No evidence of disc bulge or herniation. The neural foramina are bilaterally patent. Moderate facet disease is present C4-5: The bony spinal canal is normal in size. No evidence of disc bulge or herniation. The neural foramina are bilaterally patent. C5-6: Mild facet disease is present without central spinal stenosis or neural foraminal encroachment C6-7: Moderate loss of disc space height with mild uncinate ridging. No significant spinal stenosis or neural foraminal encroachment C7-T1: The bony spinal canal is normal in size. No evidence of disc bulge or herniation. The neura l foramina are bilaterally patent. Asymmetrical apical pleural thickening with pleural calcifications. These are incompletely evaluated on today's exam CONCLUSION: Degenerative changes without fracture. Controlled flexion and extension films could be used to exclude instability the patient remains sympt omatic. Electronically signed by: Jose Najera MD Board Certified Radiologist 11/09/2018 9:53 PM EST
--- NOTE | 2018-11-09 22:09 | CT ---
EXAM DATE: 11/09/2018 10:00 PM EST AGE/SEX: 88 years / Female INDICATIONS: Trauma. Fall. CLINICAL DATA: This is the patient's initial encounter. Patient reports that signs and symptoms have been present for 1 day and indicates a pain score of Nonresponsive. MEDICAL/SURGICAL HISTORY: Non-responsive. Non-responsive. ORAL CONTRAST: No oral contrast ingested. RADIATION DOSE: 5.02 CTDI (mGy) COMPARISON: No prior exams available for comparison. TECHNIQUE: Multiple contiguous axial images were obtained through the abdomen and pelvis following b olus infusion of 80 ml Omnipaque 350 (iohexol) nonionic water-soluble contrast as a single exam dos e. No oral contrast ingested. Using automated exposure control and adjustment of the mA and/or kV ac cording to patient size, radiation dose was kept as low as reasonably achievable to obtain optimal di agnostic quality images. DICOM format image data is available electronically for review and comparis on. FINDINGS: Lower Lungs: Minimal parenchymal changes right base with moderate peribronchial thickening. No pneumo thorax Liver: The liver has a homogeneous density without space-occupying lesion. There is no dilation of th e biliary tree. Spleen: Homogeneous density without enlargement. Pancreas: Unremarkable without mass or calcification. Kidneys: Normal in size and shape. No evidence of mass or hydronephrosis. Adrenal Glands: Unremarkable. Bowel and mesentery: There are no inflammatory changes. Scattered stool is evident. Retroperitoneum: There is no adenopathy Pelvis contents: Cystic 3.2 cm mass right adnexa region. Left adnexa is unremarkable Fibroid uterus No ascites Bony skeleton: Osteopenia with degenerative changes in the lumbar spine. There is a nondisplaced frac ture of the left pubic ramus. CONCLUSION: 1. Moderate stool throughout the colon. 2. Cystic mass right adnexa region 3. Nondisplaced fracture pubic ramus on the left. Electronically signed by: Jose Najera MD Board Certified Radiologist 11/09/2018 10:07 PM EST
--- NOTE | 2018-11-09 22:14 | CT ---
EXAM DATE: 11/09/2018 10:03 PM EST AGE/SEX: 88 years / Female INDICATIONS: Trauma. Fall. CLINICAL DATA: This is the patient's initial encounter. Patient reports that signs and symptoms have been present for 1 day and indicates a pain score of Nonresponsive. MEDICAL/SURGICAL HISTORY: Non-responsive. Non-responsive. RADIATION DOSE: 5.10 CTDI (mGy) ; Combined studies COMPARISON: No prior exams available for comparison. TECHNIQUE: Multiple contiguous axial images were obtained through the chest during bolus infusion of 80 ml Omnipaque 350 (iohexol) nonionic water-soluble contrast as a single exam dose. Images were obtained in suspended respiration using multiple row detector helical technique. Using automated exp osure control and adjustment of the mA and/or kV according to patient size, radiation dose was kept a s low as reasonably achievable to obtain optimal diagnostic quality images. DICOM format image data is available electronically for review and comparison. FINDINGS: Lungs: Extensive calcified pleural plaques in both lungs with moderate hyperinflation. There is no p neumothorax. There is no pleural effusion. Mediastinum: There is no axillary or mediastinal adenopathy. Marked coronary calcic locations eviden t. Bony Structures: Review of bone windows reveals significant osteopenia. I don't see a displaced frac ture. One can easily be missed given the degree of osteopenia. Miscellaneous: Upper abdominal contents are grossly normal. CONCLUSION: 1. Negative for acute traumatic injury 2. Extensive atheromatous changes with calcified pleural plaques. 3. I don't see a pneumothorax. Electronically signed by: Jose Najera MD Board Certified Radiologist 11/09/2018 10:13 PM EST
--- NOTE | 2018-11-09 22:20 | P.PNNS ---
Physical Exam Vital signs: Vital Signs 11/08/18 22:36 11/08/18 23:00 11/08/18 23:30 Temperature Pulse Rate 112 H 106 H 103 H Respiratory Rate 28 H 23 21 Blood Pressure 130/73 117/66 109/71 Pulse Oximetry 95 97 99 11/09/18 00:00 11/09/18 00:09 11/09/18 00:31 Temperature 94.9 F L Pulse Rate 109 H 99 H Respiratory Rate 27 H 24 Blood Pressure 118/70 134/87 Pulse Oximetry 73 L 100 100 11/09/18 00:38 11/09/18 01:00 11/09/18 01:30 Temperature Pulse Rate 97 H 102 H 96 H Respiratory Rate 20 23 16 Blood Pressure 138/90 148/85 H 128/75 Pulse Oximetry 100 95 97 11/09/18 02:00 11/09/18 02:30 11/09/18 03:00 Temperature Pulse Rate 96 H 98 H 96 H Respiratory Rate 15 15 15 Blood Pressure 130/78 138/82 136/84 Pulse Oximetry 100 98 98 11/09/18 03:30 11/09/18 04:00 11/09/18 04:30 Temperature 97.6 F Pulse Rate 93 H 94 H 95 H Respiratory Rate 15 15 16 Blood Pressure 140/88 138/95 H 127/82 Pulse Oximetry 99 99 100 11/09/18 05:00 11/09/18 05:30 11/09/18 06:00 Temperature Pulse Rate 96 H 92 H 104 H Respiratory Rate 16 17 37 H Blood Pressure 132/86 138/82 Pulse Oximetry 98 99 93 L 11/09/18 06:04 11/09/18 06:30 11/09/18 07:00 Temperature 97.6 F Pulse Rate 98 H 89 Respiratory Rate 29 H 17 Blood Pressure 133/85 130/76 161/65 H Pulse Oximetry 97 99 11/09/18 08:00 11/09/18 09:00 11/09/18 10:00 Temperature Pulse Rate 81 96 H 88 Respiratory Rate Blood Pressure 159/72 H 158/74 H 122/68 Pulse Oximetry 96 96 97 11/09/18 11:00 11/09/18 12:00 11/09/18 13:00 Temperature 97.7 F Pulse Rate 84 87 70 Respiratory Rate Blood Pressure 114/61 169/87 H 128/76 Pulse Oximetry 99 97 100 11/09/18 14:00 11/09/18 15:00 11/09/18 16:00 Temperature 97.5 F L Pulse Rate 85 95 H 84 Respiratory Rate Blood Pressure 124/66 148/85 H 115/67 Pulse Oximetry 96 94 L 95 11/09/18 17:00 11/09/18 18:00 11/09/18 19:00 Temperature Pulse Rate 81 96 H 108 H Respiratory Rate 25 H Blood Pressure 145/72 H 144/76 H 134/62 Pulse Oximetry 95 97 96 11/09/18 19:48 11/09/18 20:00 11/09/18 20:50 Temperature 97.8 F Pulse Rate 106 H 98 H Respiratory Rate 23 26 H Blood Pressure 143/72 H Pulse Oximetry 95 93 L 11/09/18 21:00 11/09/18 22:00 Temperature Pulse Rate 106 H 100 H Respiratory Rate 23 22 Blood Pressure 144/70 H 150/75 H Pulse Oximetry 99 99 Intake & Output 11/09/18 11/09/18 11/10/18 06:59 18:59 06:59 Intake Total 120 / 120 2080 / 2080 Output Total 850 / 850 Balance 120 / 120 1230 / 1230 Weight 41.49 kg Intake: IV 1000 / 1000 NS Inj 1,000 ML @ 60 mls/hr IV. 1000 / 1000 SIG .[id number] [facility] Rx#:[id number] Oral 120 / 120 1080 / 1080 Output: Urine 850 / 850 Other: # Voids 1 # Incontinent Voids 2 Weight On Admission 41.49 kg Assessment and Plan - Plan I have reviewed the clinical and radiological findings Head CT 11/08/18 16:33 CONCLUSION: 1. Focal small areas of hemorrhagic contusions are noted in the left frontal lobe. This is characteristic of recent trauma. 2. Focal soft tissue swelling of the scalp overlying the left for head. The underlying calvarium is grossly intact. Pelvis X-Ray 11/08/18 16:33 CONCLUSION: 1. Fracture deformity of the superior left pubic rami which appears acute. 2. The hips appear intact. 3. Moderate to severe osteopenia. Neuro: neuro checks in a serial fashion. Pulmonary: aggressive pulmonary toilette, nasotracheal suction, and breathing treatments with nebulizers. Daily PT and OT Renal: Continue to monitor closely urine output, BUN and creatinine Endocrine: Continue to Monitor serial Acu checks and SSI as needed in detail ID continue to monitor for signs of infection Continue Protonix for stress ulcer prophylaxis Continue Nestor hose and SCD's for DVT prophylaxis Further recommendations will be provided depending on the patient's clinical evaluation and follow up studies.
[2018-11-10] MEDS ORDERED: Chlorhexidine Gluconate 2% 1 Pack (2 Cloths) TOPICAL PRN (04:00)
[2018-11-10] MEDS: Chlorhexidine Gluconate 2% 1 Pack (2 Cloths) TOPICAL SCH (04:58)
[2018-11-10] MEDS: Sod Chloride 0.9% Inj 1,000 ML IV.SIG SCH ×2 (04:58→09:06)
[2018-11-10 06:12] LABS: Baso % (Auto) 0.5 % (0.0-2.0); Eos # (Auto) 0.2 th/mm3 (0.0-0.4); Eos % (Auto) 1.8 % (0.0-4.0); Hematocrit 37.7 % (35.0-46.0); Hemoglobin 12.7 gm/dL (11.6-15.3); Lymph # (Auto) 0.3 th/mm3 (1.0-4.8); Lymph % (Auto) 2.8 % (9.0-44.0); Mean Corpuscular HGB Conc 33.7 % (32.0-36.0); Mean Corpuscular Hemoglobin 31.7 pg (27.0-34.0); Mean Corpuscular Volume 93.8 fL (80.0-100.0); Mono # (Auto) 0.4 th/mm3 (0.0-0.9); Mono % (Auto) 4.1 % (0.0-8.0); Neut # (Auto) 8.2 th/mm3 (1.8-7.7); Neut % (Auto) 90.8 % (16.0-70.0); Platelet Count 105 th/mm3 (150-450); Red Blood Count 4.02 mil/mm3 (4.00-5.30)
[2018-11-10 06:37] LABS: Albumin 2.9 g/dL (3.4-5.0); Calcium 7.4 mg/dL (8.5-10.1); Carbon Dioxide 28.5 meq/L (21.0-32.0); Potassium 3.6 meq/L (3.5-5.1); Total Protein 5.7 g/dL (6.4-8.2)
--- NOTE | 2018-11-10 06:56 | P.PNNPSY ---
- Behavior Intact: Impulsive/agitated - Cognitive Mild: Cognitive, Attention/concentration, Confused/orientation, Insight/ awareness, Judgment/problem solving, Memory - Progress Notes/Response to Treatment Contents of Sessions: Adjustment, Level of consciousness Time with Patient: 30 minutes Premorbid Psychological Status: Premorbid Cognitive, Emotional and Behavioral Status: Stable. 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 The patient has no prior psychiatric difficulties, as described above. Substance abuse history is unremarkable. Behavioral Reactions of Patient and Family/Support System: Stable. The patient s family is experiencing ongoing issues of adjustment given the nature of the injury, and this aspect of recovery will require ongoing monitoring. Emotional/Behavioral Status of Patient and Family/Support System: Stable. Pertinent issues, if appropriate to this patients clinical care, are described in detail above. Maximizing Acute Care Outcome: It is recommended that the patient be monitored for emergent behavioral impulsivity as the medical condition evolves. This patients neuropathological challenges may limit rehabilitation potential going forward, and these challenges will require specialized therapeutic skills to maximize outcome. At this point in the recovery process, the patient does retain cognitive capacity as the patient is able to understand a situation and its likely consequences, and she is able to manipulate information rationally. Cognitive capacity will be assessed throughout the recovery process. Anticipated Problems: Ongoing areas of concern will include behavioral impulsivity, lack of insight and judgment, which is expected to improve with time and treatment. Treatment Plan: This clinician will continue to follow with you throughout the course of this patients critical care treatment, and I will be available to meet with the patients family/support system to facilitate their understanding and the ongoing care of their family member. The goals of neuropsychological intervention shall be both educational and supportive to the family/support system as is deemed clinically appropriate. [place] COG Scale: Level Impression: 88 year old woman s/p complicated mild traumatic brain injury 2T fall on 2017. Progress Note Narrative: PTD 2. The patient is improving, and has no neurobehavioral issues. No issues of agitation/restlessness. She is at the least Rancho , and likely Rancho VII. I will follow. - Diagnosis (1) Mild major neurocognitive disorder as late effect of traumatic brain injury without behavioral disturbance Status: Acute
[2018-11-10] MEDS: levETIRAcetam 500 MG Tablet PO SCH ×2 (09:07→22:08)
[2018-11-10] MEDS: Docusate Sodium 100 MG Capsule PO SCH ×2 (09:07→22:08)
[2018-11-10] MEDS: Famotidine 20 MG Tablet PO SCH ×2 (09:07→22:08)
--- NOTE | 2018-11-10 10:19 | P.PNNS ---
Subjective Interval history: awake, alert, very hard of hearing. denies headaches, requesting discharge to a rehab facility Physical Exam Vital signs: Vital Signs 11/09/18 10:00 11/09/18 11:00 11/09/18 12:00 Temperature 97.7 F Pulse Rate 88 84 87 Respiratory Rate Blood Pressure 122/68 114/61 169/87 H Pulse Oximetry 97 99 97 11/09/18 13:00 11/09/18 14:00 11/09/18 15:00 Temperature Pulse Rate 70 85 95 H Respiratory Rate Blood Pressure 128/76 124/66 148/85 H Pulse Oximetry 100 96 94 L 11/09/18 16:00 11/09/18 17:00 11/09/18 18:00 Temperature 97.5 F L Pulse Rate 84 81 96 H Respiratory Rate Blood Pressure 115/67 145/72 H 144/76 H Pulse Oximetry 95 95 97 11/09/18 19:00 11/09/18 19:48 11/09/18 20:00 Temperature 97.8 F Pulse Rate 108 H 106 H Respiratory Rate 25 H 23 Blood Pressure 134/62 143/72 H Pulse Oximetry 96 95 93 L 11/09/18 20:50 11/09/18 21:00 11/09/18 22:00 Temperature Pulse Rate 98 H 106 H 100 H Respiratory Rate 26 H 23 22 Blood Pressure 144/70 H 150/75 H Pulse Oximetry 99 99 11/09/18 23:00 11/10/18 00:00 11/10/18 01:00 Temperature Pulse Rate 93 H 93 H 95 H Respiratory Rate 19 20 19 Blood Pressure 150/73 H 142/83 H 132/88 Pulse Oximetry 95 91 L 92 L 11/10/18 02:00 11/10/18 03:11 11/10/18 04:00 Temperature 97.8 F Pulse Rate 95 H 107 H 108 H Respiratory Rate 20 19 22 Blood Pressure 155/79 H 105/74 124/73 Pulse Oximetry 88 L 95 98 11/10/18 05:00 11/10/18 06:00 11/10/18 08:10 Temperature Pulse Rate 101 H 97 H Respiratory Rate 20 21 Blood Pressure 153/82 H 164/84 H Pulse Oximetry 96 97 98 Intake & Output 11/09/18 11/10/18 11/10/18 18:59 06:59 18:59 Intake Total 2080 / 2080 1360 / 1360 Output Total 850 / 850 450 / 450 Balance 1230 / 1230 910 / 910 Weight 42.6 kg Intake: IV 1000 / 1000 1000 / 1000 NS Inj 1,000 ML @ 60 mls/hr IV. 1000 / 1000 1000 / 1000 SIG .[id number] [facility] Rx#:[id number] Oral 1080 / 1080 360 / 360 Output: Urine 850 / 850 450 / 450 Other: # Bowel Movements 0 Narrative: left forehead hematoma, left facial ecchymoses awake alert very hard of hearing moves all four extremities against gravity symmetrically pupils equal Assessment and Plan - Plan 88 y/o female TBI traumatic SAH cont neuro checks in a serial fashion neuro exam stable cont therapy pt requesting rehab placement Continue Protonix for stress ulcer prophylaxis Continue Nestor carol[place] and SCD's for DVT prophylaxis
--- NOTE | 2018-11-10 14:14 | P.PNCC ---
Subjective Brief History: [place]: This is [id number] female who tripped while carrying groceries and hit her head against a hard surface, probably concrete. She was transferred to [facility], worked up partially, found to have lacerations of the left forehead, intracranial hemorrhage and fracture of the superior left ramus pubis. Hence, she is transferring to our institution at the request of Dr. Moreno. Patient with intracranial hemorrhage to be admitted to ICU and watched. The patient will have another CAT scan about 6-8 hours from now and then another one probably in the next day depending on progression. In addition, the patient never had a CT of the neck and in patients with intracranial or cranial injuries, CT of the neck, especially in this age group, is required because patients will have silent fractures. In addition, the patient requires EKG, CT of abdomen and pelvis to evaluate for any intra-abdominal pelvic bleeding in the face of pubic bone fracture, especially in fragile patients, that can cause laceration of veins and problems which need to be addressed. At this point, the patient will remain in ICU. 24 Hour Review/Hospital Course: 11/09/2018 88-year-old female who fell from standing position while carrying groceries and sustained intracranial hemorrhage and pubic ramus fracture Patient was transferred from [facility] yesterday On initial exam patient was awake alert and neurologically intact At some point later on patient became more confused and clearly had change in neurologic status although she moves all 4 extremities and there was no motoric deficit Due to the cognitive deficit development patient underwent repeat CT scan of the brain which revealed some expansion of her bleeding areas This morning patient is awake alert and oriented Neurologically intact with no drift no lateralization Pupils equal reactive and CN II to XII are normal Wound on left forehead is clean and dry dressing has been removed we will leave the wound open to air Bilateral breath sounds heart regular rhythm Hemodynamically patient is stable Abdomen is soft tender of the left pubis Plan Repeat CT scan of the brain today CT of the neck abdomen and pelvis considering the patient's frail status and possible intra-abdominal injuries or hematomas Advance to regular diet 11/10/2018 Patient sitting up in bed. No distress noted. Patient remains alert and oriented. Moves all extremity well. Patient is currently hemodynamically stable, therefore she may transferred to the [facility] floor for continued care Objective Vital Signs / I&O: Vital Signs 11/09/18 14:00 11/09/18 15:00 11/09/18 16:00 Temperature 97.5 F L Pulse Rate 85 95 H 84 Respiratory Rate Blood Pressure 124/66 148/85 H 115/67 Pulse Oximetry 96 94 L 95 11/09/18 17:00 11/09/18 18:00 11/09/18 19:00 Temperature Pulse Rate 81 96 H 108 H Respiratory Rate 25 H Blood Pressure 145/72 H 144/76 H 134/62 Pulse Oximetry 95 97 96 11/09/18 19:48 11/09/18 20:00 11/09/18 20:50 Temperature 97.8 F Pulse Rate 106 H 98 H Respiratory Rate 23 26 H Blood Pressure 143/72 H Pulse Oximetry 95 93 L 11/09/18 21:00 11/09/18 22:00 11/09/18 23:00 Temperature Pulse Rate 106 H 100 H 93 H Respiratory Rate 23 22 19 Blood Pressure 144/70 H 150/75 H 150/73 H Pulse Oximetry 99 99 95 11/10/18 00:00 11/10/18 01:00 11/10/18 02:00 Temperature Pulse Rate 93 H 95 H 95 H Respiratory Rate 20 19 20 Blood Pressure 142/83 H 132/88 155/79 H Pulse Oximetry 91 L 92 L 88 L 11/10/18 03:11 11/10/18 04:00 11/10/18 05:00 Temperature 97.8 F Pulse Rate 107 H 108 H 101 H Respiratory Rate 19 22 20 Blood Pressure 105/74 124/73 153/82 H Pulse Oximetry 95 98 96 11/10/18 06:00 11/10/18 07:00 11/10/18 07:11 Temperature Pulse Rate 97 H 103 H 119 H Respiratory Rate 21 21 29 H Blood Pressure 164/84 H 162/88 H Pulse Oximetry 97 11/10/18 08:00 11/10/18 08:10 11/10/18 08:11 Temperature 95.4 F L Pulse Rate 104 H 101 H Respiratory Rate 30 H 31 H Blood Pressure 136/77 Pulse Oximetry 97 98 98 11/10/18 09:00 11/10/18 09:11 11/10/18 10:00 Temperature Pulse Rate 101 H 107 H 104 H Respiratory Rate 23 22 29 H Blood Pressure 175/91 H Pulse Oximetry 76 L 99 11/10/18 10:11 11/10/18 11:00 11/10/18 11:11 Temperature Pulse Rate 108 H 101 H 100 H Respiratory Rate 30 H 25 H 25 H Blood Pressure 142/72 H 150/74 H Pulse Oximetry 11/10/18 12:00 11/10/18 12:11 11/10/18 13:00 Temperature 98.5 F Pulse Rate 103 H 108 H 114 H Respiratory Rate 25 H 32 H 28 H Blood Pressure 166/80 H Pulse Oximetry 98 11/10/18 13:11 Temperature Pulse Rate 114 H Respiratory Rate 35 H Blood Pressure 157/94 H Pulse Oximetry Intake & Output 11/09/18 11/10/18 11/10/18 18:59 06:59 18:59 Intake Total 2080 / 2080 1360 / 1360 Output Total 850 / 850 450 / 450 Balance 1230 / 1230 910 / 910 Weight 42.6 kg Intake: IV 1000 / 1000 1000 / 1000 NS Inj 1,000 ML @ 60 mls/hr IV. 1000 / 1000 1000 / 1000 SIG .[id number] [facility] Rx#:[id number] Oral 1080 / 1080 360 / 360 Output: Urine 850 / 850 450 / 450 Other: # Bowel Movements 0 Result Diagrams: 11/10/18 04:50 11/10/18 04:50 Imaging: Impressions Cervical Spine CT 11/09/18 00:00 CONCLUSION: Degenerative changes without fracture. Controlled flexion and extension films could be used to exclude instability the patient remains symptomatic. Abdomen/Pelvis CT 11/09/18 10:00 CONCLUSION: 1. Moderate stool throughout the colon. 2. Cystic mass right adnexa region 3. Nondisplaced fracture pubic ramus on the left. Chest CT 11/09/18 10:04 CONCLUSION: 1. Negative for acute traumatic injury 2. Extensive atheromatous changes with calcified pleural plaques. 3. I don't see a pneumothorax. Head CT 11/09/18 10:04 CONCLUSION: 1. Evolving subarachnoid hemorrhage in the left frontal high convexities. 2. No new intercurrent hemorrhage, hydrocephalus or midline shift. . Objective Remarks: GENERAL: This is a 88-year-old female sitting up in bed. No distress noted. SKIN: Warm and dry. HEAD: Atraumatic. Normocephalic. Left facial ecchymosis. EYES: PERRLA ENT: Extremely [place]. No nasal bleeding or discharge. Mucous membranes pink and moist. NECK: Trachea midline. No JVD. CARDIOVASCULAR: Regular rate and rhythm. RESPIRATORY: No accessory muscle use. Lungs are clear to auscultation. Breath sounds equal bilaterally. No distress or dyspnea. GASTROINTESTINAL: BS + x 4 quads. Abdomen soft, non-tender, nondistended. MUSCULOSKELETAL: Extremities without cyanosis, or edema. + peripheral pulses x 4 extremities. Warm with good capillary refill and sensation. MAEW. NEUROLOGICAL: Awake and alert. Normal speech and pattern. Assessment and Plan - Assessment (1) ICH (intracerebral hemorrhage) Code(s): I61.9 - Nontraumatic intracerebral hemorrhage, unspecified Status: Acute (2) Fracture of pubic ramus Code(s): S32.599A - Other specified fracture of unspecified pubis, initial encounter for closed fracture Status: Acute (3) Mild major neurocognitive disorder as late effect of traumatic brain injury without behavioral disturbance Code(s): S06.9X9S - Unspecified intracranial injury with loss of consciousness of unspecified duration, sequela; F01.50 - Vascular dementia without behavioral disturbance Status: Acute Plan: [place]: This is a 88-year-old female who sustained a fall. She apparently tripped and fell while carrying groceries. She fell and hit the left side of her forehead. However, she was ambulatory after the fall. INJURIES: LEFT frontal lobe hemorrhagic contusion (7mm) LEFT SAH LEFT pubic rami fx Cystic 3.2 cm mass right adnexa region PMHx: [place] Procedures: Consults: Neurosurgery. Orthopedics. Neuropsych. Case management. Diet: Regular diet. Tolerating po diet. Encourage good po intake with each meal. Pulmonary: Encourage good pulmonary toileting. IS at bedside and pt encouraged to use. Rationale for use explained to patient, and verbalized understanding. PAIN Management: Tylenol PRN. Morphine 1 mg every 4 hours for breakthrough pain. Activity: OOB. PT and OT ordered. (Await weightbearing status from orthopedics post evaluation a CT scan) GI prophylaxis: Pepcid 20 mg BID PO Bowel regimen: Colace. MOM. LBM: 0 DVT prophylaxis: Mechanical VTE with SCDs. Chemical management contraindicated at this time due to TBI. DC Planning: Case management consulted for assistance with final discharge disposition. Emotional support provided to patient and family at bedside and plan of care discussed. Discussed with RN at bedside during a.m. trauma rounds. Discussed pt condition and plan of care with collaborating trauma surgeon. Patient is hemodynamically stable and therefore can be transferred to the med/ surg floor for continued monitoring and care. The trauma team will round each day, and evaluate plan of care on a daily basis. LEFT frontal lobe hemorrhagic contusion (7mm) LEFT SAH Neurosurgery consulted and assisting in management and care Supportive care 11/09: Ct brain -early a.m.- Increase L SAH 11/09: CT brain -evolving SAH 11/09: CT CSpine - NEG Serial neuro checks CT brain for any change in neurological status Prevent secondary head injury Pain management Seizure precautions Seizure prophylaxis -Keppra p.o. Neuropsych consulted and assisting in management and care Monitor for agitation Encourage out of bed PT and OT ordered Bowel regimen SCDs for DVT prophylaxis LEFT pubic rami fx Orthopedics consulted and assisting in management and care Supportive care 11/09: CT abdomen and pelvis Pain management Await further plan once CT abdomen/pelvis evaluated by Dr. Alcazar Weight bearing status -TBD post CT abdomen and pelvis eval Encourage out of bed PT and OT ordered Bowel regimen SCDs for DVT prophylaxis (1) ICH (intracerebral hemorrhage) Qualifiers: Intracerebral hemorrhage etiology: traumatic Encounter type: initial encounter Laterality: left Loss of consciousness presence/duration: without LOC Qualified Code(s): S06.350A - Traumatic hemorrhage of left cerebrum without loss of consciousness, initial encounter (2) Fracture of pubic ramus Qualifiers: Encounter type: initial encounter Fracture type: closed Laterality: left Qualified Code(s): S32.592A - Other specified fracture of left pubis, initial encounter for closed fracture
[2018-11-11] MEDS: Sod Chloride 0.9% Inj 1,000 ML IV.SIG SCH (01:36)
[2018-11-11] MEDS: Chlorhexidine Gluconate 2% 1 Pack (2 Cloths) TOPICAL SCH (06:51)
[2018-11-11 07:11] LABS: Baso % (Auto) 0.3 % (0.0-2.0); Eos # (Auto) 0.1 th/mm3 (0.0-0.4); Eos % (Auto) 1.6 % (0.0-4.0); Hematocrit 36.4 % (35.0-46.0); Hemoglobin 12.2 gm/dL (11.6-15.3); Lymph # (Auto) 0.3 th/mm3 (1.0-4.8); Lymph % (Auto) 3.4 % (9.0-44.0); Mean Corpuscular HGB Conc 33.5 % (32.0-36.0); Mean Corpuscular Hemoglobin 31.4 pg (27.0-34.0); Mean Corpuscular Volume 93.5 fL (80.0-100.0); Mean Platelet Volume 8.7 fL (7.0-11.0); Mono # (Auto) 0.6 th/mm3 (0.0-0.9); Mono % (Auto) 6.7 % (0.0-8.0); Neut # (Auto) 8.1 th/mm3 (1.8-7.7); Platelet Count 98 th/mm3 (150-450); Red Blood Count 3.89 mil/mm3 (4.00-5.30); Red Cell Distribution Width 14.8 % (11.6-17.2); White Blood Count 9.2 th/mm3 (4.0-11.0)
[2018-11-11 07:37] LABS: Alanine Aminotransferase 28 U/L (10-53); Albumin 2.5 g/dL (3.4-5.0); Anion Gap 4 meq/L (5-15); Aspartate Aminotransferase 23 U/L (15-37); Blood Urea Nitrogen 17 mg/dL (7-18); Calcium 7.6 mg/dL (8.5-10.1); Carbon Dioxide 27.2 meq/L (21.0-32.0); Chloride 107 meq/L (98-107); Glomerular Filtration Rate Greater Than 89 mL/min (>89); Glucose,Random 88 mg/dL (74-106); Potassium 4.1 meq/L (3.5-5.1); Sodium 138 meq/L (136-145)
[2018-11-11 07:39] LABS: Alkaline Phosphatase 67 U/L (45-117); Total Protein 5.4 g/dL (6.4-8.2)
[2018-11-11] MEDS: Docusate Sodium 100 MG Capsule PO SCH (09:01)
[2018-11-11] MEDS: levETIRAcetam 500 MG Tablet PO SCH (09:01)
[2018-11-11] MEDS: Famotidine 20 MG Tablet PO SCH (09:01)
--- NOTE | 2018-11-11 09:28 | P.PN ---
Subjective Interval history: TRAUMA PTD: 2 Patient sitting up in bed. No distress noted. Patient with no complaints. No acute events overnight. Collaborated with RN at bedside Physical Exam Vital signs: Vital Signs 11/10/18 10:00 11/10/18 10:11 11/10/18 11:00 Temperature Pulse Rate 104 H 108 H 101 H Respiratory Rate 29 H 30 H 25 H Blood Pressure 142/72 H Pulse Oximetry 99 11/10/18 11:11 11/10/18 12:00 11/10/18 12:11 Temperature 98.5 F Pulse Rate 100 H 103 H 108 H Respiratory Rate 25 H 25 H 32 H Blood Pressure 150/74 H 166/80 H Pulse Oximetry 98 11/10/18 13:00 11/10/18 13:11 11/10/18 14:00 Temperature Pulse Rate 114 H 114 H 110 H Respiratory Rate 28 H 35 H 27 H Blood Pressure 157/94 H 157/94 H Pulse Oximetry 97 11/10/18 15:48 11/10/18 20:00 11/11/18 00:00 Temperature 97.9 F 98.4 F 99.3 F Pulse Rate 109 H 102 H 104 H Respiratory Rate 16 16 16 Blood Pressure 131/91 H 157/91 H 143/84 H Pulse Oximetry 99 97 98 11/11/18 04:00 11/11/18 08:00 Temperature 98.6 F 97.1 F L Pulse Rate 106 H 110 H Respiratory Rate 16 18 Blood Pressure 131/86 122/63 Pulse Oximetry 97 91 L Intake & Output 11/10/18 11/11/18 11/11/18 18:59 06:59 18:59 Intake Total 500 / 500 Balance 500 / 500 Weight 42.8 kg Intake: IV 500 / 500 NS Inj 1,000 ML @ 60 mls/hr IV. 500 / 500 SIG .[id number] [facility] Rx#:[id number] Other: # Voids 2 Narrative: GENERAL: This is a 88-year-old female sitting up in bed. No distress noted. SKIN: Warm and dry. HEAD: Atraumatic. Normocephalic. Left scalp hematoma/ecchymosis. Left facial ecchymosis. EYES: PERRLA ENT: Extremely [place]. No nasal bleeding or discharge. Mucous membranes pink and moist. NECK: Trachea midline. No JVD. CARDIOVASCULAR: Regular rate and rhythm. RESPIRATORY: No accessory muscle use. Lungs are clear to auscultation. Breath sounds equal bilaterally. No distress or dyspnea. GASTROINTESTINAL: BS + x 4 quads. Abdomen soft, non-tender, nondistended. MUSCULOSKELETAL: Extremities without cyanosis, or edema. + peripheral pulses x 4 extremities. Warm with good capillary refill and sensation. MAEW. NEUROLOGICAL: Awake and alert. Normal speech and pattern. Results - Labs CBC & Chem 7: 11/11/18 06:50 11/11/18 06:50 Laboratory Results - last 24 hr 11/11/18 11/11/18 06:50 06:50 WBC 9.2 RBC 3.89 L Hgb 12.2 Hct 36.4 MCV 93.5 MCH 31.4 MCHC 33.5 RDW 14.8 Plt Count 98 L MPV 8.7 Prelim Diff (Auto) Slide review pending Neut % (Auto) 88.0 H Lymph % (Auto) 3.4 L [place] % (Auto) 6.7 Eos % (Auto) 1.6 Baso % (Auto) 0.3 Neut # (Auto) 8.1 H Lymph # (Auto) 0.3 L [place] # (Auto) 0.6 Eos # (Auto) 0.1 Baso # (Auto) 0.0 WBC Differential . Diff Scan Auto diff confirmed Differential Comment . Sodium 138 Potassium 4.1 Chloride 107 Carbon Dioxide 27.2 Anion Gap 4 L BUN 17 Creatinine 0.51 Estimated GFR Greater than 89 Random Glucose 88 Calcium 7.6 L Total Bilirubin 1.3 H AST 23 ALT 28 Alkaline Phosphatase 67 Total Protein 5.4 L Albumin 2.5 L Assessment and Plan - Assessment (1) ICH (intracerebral hemorrhage) Code(s): I61.9 - Nontraumatic intracerebral hemorrhage, unspecified Status: Acute (2) Fracture of pubic ramus Code(s): S32.599A - Other specified fracture of unspecified pubis, initial encounter for closed fracture Status: Acute (3) Mild major neurocognitive disorder as late effect of traumatic brain injury without behavioral disturbance Code(s): S06.9X9S - Unspecified intracranial injury with loss of consciousness of unspecified duration, sequela; F01.50 - Vascular dementia without behavioral disturbance Status: Acute - Plan [place]: This is a 88-year-old female who sustained a fall. She apparently tripped and fell while carrying groceries. She fell and hit the left side of her forehead. However, she was ambulatory after the fall. INJURIES: LEFT frontal lobe hemorrhagic contusion (7mm) LEFT SAH LEFT pubic rami fx Cystic 3.2 cm mass right adnexa region PMHx: [place] Procedures: Consults: Neurosurgery. Orthopedics. Neuropsych. Case management. Diet: Regular diet. Tolerating po diet. Encourage good po intake with each meal. Pulmonary: Encourage good pulmonary toileting. IS at bedside and pt encouraged to use. Rationale for use explained to patient, and verbalized understanding. PAIN Management: Tylenol PRN. Morphine 1 mg every 4 hours for breakthrough pain. Activity: OOB. PT and OT ordered. (Await weightbearing status from orthopedics post evaluation a CT scan) GI prophylaxis: Pepcid 20 mg BID PO Bowel regimen: Colace. MOM. LBM: 0 DVT prophylaxis: Mechanical VTE with SCDs. Chemical management contraindicated at this time due to TBI. DC Planning: Case management consulted for assistance with final discharge disposition. Emotional support provided to patient and family at bedside and plan of care discussed. Discussed with RN at bedside during a.m. trauma rounds. Discussed pt condition and plan of care with collaborating trauma surgeon. Patient is hemodynamically stable and therefore can be transferred to the med/ surg floor for continued monitoring and care. The trauma team will round each day, and evaluate plan of care on a daily basis. LEFT frontal lobe hemorrhagic contusion (7mm) LEFT SAH Neurosurgery consulted and assisting in management and care Supportive care 11/09: Ct brain -early a.m.- Increase L SAH 11/09: CT brain -evolving SAH 11/09: CT CSpine - NEG Serial neuro checks CT brain for any change in neurological status Prevent secondary head injury Pain management Seizure precautions Seizure prophylaxis -Keppra p.o. Neuropsych consulted and assisting in management and care Monitor for agitation Encourage out of bed PT and OT ordered Bowel regimen SCDs for DVT prophylaxis LEFT pubic rami fx Orthopedics consulted and assisting in management and care Supportive care 12/13: CT abdomen and pelvis Pain management Nonoperative management at this time WBAT LLE Encourage out of bed PT and OT ordered Bowel regimen SCDs for DVT prophylaxis (1) ICH (intracerebral hemorrhage) Qualifiers: Intracerebral hemorrhage etiology: traumatic Encounter type: initial encounter Laterality: left Loss of consciousness presence/duration: without LOC Qualified Code(s): S06.350A - Traumatic hemorrhage of left cerebrum without loss of consciousness, initial encounter (2) Fracture of pubic ramus Qualifiers: Encounter type: initial encounter Fracture type: closed Laterality: left Qualified Code(s): S32.592A - Other specified fracture of left pubis, initial encounter for closed fracture
[2018-11-11 16:24] VITALS: BP 156/74; PULSE 107; RESP 18; TEMP 97.7; O2SAT 97
--- NOTE | 2018-11-12 11:58 | P.DS ---
Date of admission: 11/08/18 19:12 Primary care physician: Jeremiah Santacruz MD Attending physician on discharge: Lew Higgins date of discharge: 11/12/18 Brief History from admission: Trip and fall DS: Diagnosis - Discharge Diagnosis (1) ICH (intracerebral hemorrhage) Status: Acute (2) Fracture of pubic ramus Status: Acute (3) Mild major neurocognitive disorder as late effect of traumatic brain injury without behavioral disturbance Status: Acute DS: Summary Hospital Course: TELIDA: This is a 88-year-old female who sustained a fall. She apparently tripped and fell while carrying groceries. She fell and hit the left side of her forehead. However, she was ambulatory after the fall. INJURIES: LEFT frontal lobe hemorrhagic contusion (7mm) LEFT SAH LEFT pubic rami fx Cystic 3.2 cm mass right adnexa region PMHx: [place] Procedures: Consults: Neurosurgery. Orthopedics. Neuropsych. Case management. The patient is now tolerating a po diet. Eating and drinking well. Pain is being managed well with PO pain medications, patient has been managed with p.o. Tylenol, and this can continue at the SNF (NO driving while taking narcotic pain medication enforced to patient.) We have recommended to patient to continue with stool softeners while taking narcotic pain medications to prevent constipation. Pt has been participating in PT and OT while admitted at [place] and has been ambulating with their assistance and independently. PT and OT will continue at SNF All follow up appointments have been provided and discussed with the patient. It is recommended that the patient keeps all his follow up appointments for continued recovery. Patient's condition and plan of care discussed with collaborating trauma surgeon. He is agreeable to plan for discharge today. Therefore, the patient is stable to be safely discharged to SNF from a trauma surgery standpoint. Thank you for allowing us to participate in her care. We wish Candi the best in her recovery. LEFT frontal lobe hemorrhagic contusion (7mm) LEFT SAH Neurosurgery consulted and assisting in management and care Supportive care 11/09: Ct brain -early a.m.- Increase L SAH 11/09: CT brain -evolving SAH 11/09: CT CSpine - NEG Serial neuro checks CT brain for any change in neurological status Prevent secondary head injury Pain management Seizure precautions Seizure prophylaxis -Keppra p.o. Neuropsych consulted and assisting in management and care Monitor for agitation [facility] out of bed PT and OT ordered Bowel regimen SCDs for DVT prophylaxis Follow-up with neurosurgery outpatient LEFT pubic rami fx Orthopedics consulted and assisting in management and care Supportive care 11/09: CT abdomen and pelvis Pain management Collaborated with Dr. Alcazar -patient will be managed with nonoperative management and he clarified her weightbearing status Patient will be WBAT LLE [facility] out of bed PT and OT ordered Bowel regimen SCDs for DVT prophylaxis Orthopedics have cleared the patient for discharge Follow-up with orthopedics outpatient - Time Spent with Patient Total time spent providing and/or coordinating discharge services: Greater than 30 minutes - Quality: VTE Deep Vein Thrombosis/Pulmonary Embolism Present on Admission: No Exam Vital signs: Vital Signs 11/11/18 12:00 11/11/18 13:36 11/11/18 14:51 Temperature 97.4 F L Pulse Rate 113 H Respiratory Rate 18 17 Blood Pressure 134/79 Pulse Oximetry 92 L 92 L 11/11/18 16:00 Temperature 97.7 F Pulse Rate 107 H Respiratory Rate 18 Blood Pressure 156/74 H Pulse Oximetry 97 Results Procedures completed during hospitalization: . - Impressions ITS Impressions Pelvis X-Ray 11/08/18 16:33 CONCLUSION: 1. Fracture deformity of the superior left pubic rami which appears acute. 2. The hips appear intact. 3. Moderate to severe osteopenia. Cervical Spine CT 11/09/18 00:00 CONCLUSION: Degenerative changes without fracture. Controlled flexion and extension films could be used to exclude instability the patient remains symptomatic. 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 No acute airspace disease Abdomen/Pelvis CT 11/09/18 10:00 CONCLUSION: 1. Moderate stool throughout the colon. 2. Cystic mass right adnexa region 3. Nondisplaced fracture pubic ramus on the left. Chest CT 11/09/18 10:04 CONCLUSION: 1. Negative for acute traumatic injury 2. Extensive atheromatous changes with calcified pleural plaques. 3. I don't see a pneumothorax. Head CT 11/09/18 10:04 CONCLUSION: 1. Evolving subarachnoid hemorrhage in the left frontal high convexities. 2. No new intercurrent hemorrhage, hydrocephalus or midline shift. . Discharge Plan - Discharge Disposition Patient Disposition: Discharge to SNF - Discharge Condition Condition: Stable - Discharge Order Discharge Orders: Discharge Order (Routine); Ordered 11/11/18 Ordered By: Shila Quevedo - Physicians Team Primary Care Provider: Jeremiah Santacruz Attending Provider: Lew Aguilar Other Providers: Nitish Choi MD ; Dale Schultz MD ; [employer] [employer] ; Lew Aguilar MD ; Shila Quevedo ARNP ; Gui Stewart MD ; Kathie Stephenson MD ; Ada Franco ARNP ; Fermin Ignacio MD ; Jayden Perry, PhD ; Sancho Moreno MD ; Terence Alcazar MD ; [facility],Agency ; [facility]
== END 2018-11-11 17:28 ==
LOC: PHED 16:01 → PHEDA 19:12 → N03 22:08 → N06 11-10 15:08
PROVIDERS: ADMIT Surgery; ATTEND Surgery